=== PATIENT | male | born 1950 | race Caucasian/White ===

== ENCOUNTER 2020-04-01 09:43 | Outpatient (CLI) | payer MEDICARE, SELFPAY ==
[2020-04-01 10:49] LABS: Alanine Aminotransferase 19 U/L (16-63); Albumin Level 3.4 g/dL (3.4-5.0); Alkaline Phosphatase 77 U/L (46-116); Anion Gap 8.3 mmol/L (7-16); Aspartate Amino Transferase 12 U/L (15-37); Bilirubin,Total 0.4 mg/dL (0.00-1.00); Blood Urea Nitrogen 10 mg/dL (7-18); Calcium 8.4 mg/dL (8.5-10.1); Carbon Dioxide 31 mmol/L (21-32); Chloride 106 mmol/L (98-108); Cholesterol 162 mg/dL (0-200); Estimated Glomerular Filt Rate > 60; Glucose 117 mg/dL (70-99); HDL Direct 43 mg/dL (40-60); LDL Cholesterol Calculated 89 mg/dL (<130); Osmolality Calculated 292 mOsm/kg (285-295); Potassium 4.3 mmol/L (3.5-5.1); Prostate Specific Antigen 1.7 ng/mL (< OR = 4.0); Sodium 141 mmol/L (136-145); Thyroid Stimulating Hormone 2.52 uIU/mL (0.36-3.74); Total Protein 6.4 g/dL (6.4-8.2); Triglycerides 149 mg/dL (0-150)
== END 2020-04-01 09:44 | disposition home or self-care (01) ==
LOC: CHSLAB 09:45
PROVIDERS: PCP Internal Medicine; Visit Provider Internal Medicine
DX: E03.9 Hypothyroidism, unspecified (principal); E78.00 Pure hypercholesterolemia, unspecified; Z12.5 Encounter for screening for malignant neoplasm of prostate
CPT/HCPCS: 36415; 80053; 80061; 84153; 84443; G0103

== ENCOUNTER 2020-11-24 15:53 | Outpatient (CLI) | payer MEDICARE, SELFPAY ==
--- NOTE | ~2020-11-24 | XR_ITS ---
EXAMINATION: XR chest 2V DATE: 11/24/2020 16:19 INDICATION: Preoperative evaluation with risk factor of prior smoking and mild emphysema. TECHNIQUE: PA and lateral views of the chest were obtained. COMPARISON: Chest radiograph dated and CT dated 08/12/2015 FINDINGS: Unchanged small peripheral wedge-shaped region of atelectasis/scarring at the at the lateral left low er lung zone. Also unchanged is minimal thin linear discoid atelectasis at the right middle lobe. No new airspace opacities, pulmonary edema, pleural effusion or pneumothorax. The cardiomediastinal silh ouette is normal. Old healed right fifth rib fracture.. There are bridging osteophytes at multiple le vels in the spine, consistent with diffuse idiopathic skeletal hyperostosis (DISH). IMPRESSION: 1. Chronic small region of atelectasis/scarring at the lateral left lower lung zone and minimal linea r discoid atelectasis at the right middle lobe. No acute cardiopulmonary disease. Reviewed, dictated and finalized at location B. CASTER IMPRESSION: 1. Chronic small region of atelectasis/scarring at the lateral left lower lung zone and minimal linear discoid atelectasis at the right middle lobe. No acute cardiopulmonary disease.
== END 2020-11-24 15:54 | disposition home or self-care (01) ==
LOC: CHSIMG 15:57
PROVIDERS: Visit Provider Orthopaedic Surgery
DX: M25.562 Pain in left knee (principal); Z01.812 Encounter for preprocedural laboratory examination
CPT/HCPCS: 71046

== ENCOUNTER 2020-12-01 10:40 | Outpatient (RCR) | payer MEDICARE, SELFPAY ==
--- NOTE | 2020-12-01 11:36 | PTOPEVAL ---
Thank you for referring Ru Villa to [facility].? The patient is scheduled to be seen for therapy? __2__x/week for 6 visits. Please review, sign, date and return this plan of care LORI. I agree with and certify that the following plan of care is medically necessary. Referring Physician Date Admitting Provider: Attending Provider: Harry Wilkinson, Referring Provider: *PT Outpatient Evaluation Start: 12/01/20 10:51 Freq: Status: Active Protocol: Document 12/01/20 10:45 KRISHNA (Rec: 12/01/20 11:33 KRISHNA [email or web address]) Therapy Assessment Status Assessment Status Assessment Status Evaluation Outpatient Past Medical History Cardiovascular History Hx Hypercholesterolemia Yes Musculoskeletal History Hx Orthopedic Surgery Yes Endocrine History Hx Hypothyroidism Yes Evaluation Information Problem Diagnosis left knee arthroscopy medial menisectomy Onset 11/29/20 Subjective Information Pt. reports that he underwent Query Text:As Reported By Patient/ surgery on the left knee on / Family 06/13. He stsates that he used crutches for about 2 days. He reports that he notes that the knee is stiff. He states that pain is minimal. Pt. reports that he is currently not driving. He reports that his goal for therapy is for his knee to feel good and move better. Prior Level of Function Activity Level (Last 3 Months) Occupation retired Activity of Daily Living Ability Independent Indoor/Home Mobility Independent Community Mobility Independent Stairs Ability Independent Functional Cognition (Planning, Shopping Independent , Taking Medications) Cooking Yes Cleaning Yes Laundry Yes Shopping Yes Driving Yes Pain Assessment Timing of Pain Assessment Timing of Pain Assessment Pre-Treatment Pain Scale Pain Scale Used Numeric (1 - 10) Self Report Pain Assessment Left Knee(s) Reported Pain Level 6 Pain Description Aching,Tightness Pain Frequency Continuous Pain Aggravating Factors Exercise/Activity Pain Score Pain Score 6: Self Report Interventions Used Interventions Used By Clinicians Ice Lower Extremity Range of Motion General Lower Extremity Range of Motion Gross Lower Extremity Range of Motion l
--- NOTE | 2020-12-13 09:24 | PCPTNOTE ---
12/13/20 - patient has called today and reports he would like to DC therapy this date as he reports has been approved to continue HEP exercises at home by his MD. YURI
== END 2020-12-08 13:25 | disposition home or self-care (01) ==
LOC: CHSPT 10:40
PROVIDERS: Visit Provider Orthopaedic Surgery
DX: Z98.890 Other specified postprocedural states (principal)
CPT/HCPCS: 97016; 97110; 97161

== ENCOUNTER 2021-07-19 12:07 | Outpatient (CLI) | payer MEDICARE, SELFPAY ==
--- NOTE | 2021-07-19 12:40 | ECG_ITS ---
Measurements Intervals [place] Rate: 64 P: 52 HI: 192 QRS: 73 QRSD: 88 T: 22 QT: 394 QTc: 408 Interpretive Statements SINUS RHYTHM MINIMAL Q WAVES- INFERIOR LEADS BASELINE ARTIFACT- V4 BORDERLINE ECG Electronically Signed On 07-19-2021 14:16:32 CDT by Aramis Anne D.O.
== END 2021-07-19 12:08 | disposition home or self-care (01) ==
PROVIDERS: PCP Internal Medicine
DX: Z01.818 Encounter for other preprocedural examination (principal)
CPT/HCPCS: 93005

== ENCOUNTER 2021-09-27 09:32 | Outpatient (CLI) | payer MEDICARE, SELFPAY ==
--- NOTE | ~2021-09-27 | US_ITS ---
EXAMINATION: US scrotum doppler DATE: 09/27/2021 10:10 INDICATION: Disorder of the male genital organs. Left testicular pain. TECHNIQUE: Testicular sonogram utilizing grayscale and Doppler COMPARISON: None. FINDINGS: The right testis measures 4.0 x 2.6 x 3.2 cm. The left testis measures 3.8 x 2.7 x 3.3 cm. Symmetric normal grayscale appearance to both testes. There is normal vascular flow to both testes. The right e pididymis is normal with normal vascular flow. The left epididymis is normal with normal vascular shahrzad w. There is no varicocele. Minimal bilateral hydroceles which is within normal limits. IMPRESSION: 1. Normal scrotal ultrasound. Reviewed, dictated and finalized at location B. ETING ASSISTANT
[2021-09-27 10:02] LABS: Add Urine Microscopic? NO; Appearance Urine Clear (Clear); Bilirubin Urine Negative (Negative); Blood Urine Negative (Negative); Color Urine Yellow (Yellow); Glucose Urine UA Negative (Negative); Ketones Urine Negative (Negative); Leukocyte Esterase Ur Negative (Negative); Nitrate Urine Negative (Negative); Protein Urine Negative (Negative); Specific Grav Ur >= 1.030 (1.010-1.020)
[2021-09-27 10:32] LABS: Alanine Aminotransferase 18 U/L (16-63); Albumin Level 3.6 g/dL (3.4-5.0); Alkaline Phosphatase 85 U/L (46-116); Anion Gap 8 mmol/L (8-16); Aspartate Amino Transferase 10 U/L (15-37); Bilirubin,Total 0.4 mg/dL (0.00-1.00); Blood Urea Nitrogen 10 mg/dL (7-18); Calcium 8.5 mg/dL (8.5-10.1); Carbon Dioxide 29 mmol/L (21-32); Chloride 107 mmol/L (98-108); Cholesterol 158 mg/dL (0-200); Estimated Glomerular Filt Rate 53; Free T4 Free Thyroxine 1.32 ng/dL (0.76-1.46); Glucose 113 mg/dL (70-99); HDL Direct 42 mg/dL (40-60); LDL Cholesterol Calculated 87 mg/dL (<130); Osmolality Calculated 298 mOsm/kg (285-295); Potassium 4.6 mmol/L (3.5-5.1); Prostate Specific Antigen 2.4 ng/mL (< OR = 4.0); Sodium 144 mmol/L (136-145); Total Protein 6.8 g/dL (6.4-8.2); Triglycerides 143 mg/dL (0-150)
== END 2021-09-27 09:33 | disposition home or self-care (01) ==
LOC: CHSLAB 09:34
PROVIDERS: PCP Internal Medicine; Visit Provider Internal Medicine
DX: E03.9 Hypothyroidism, unspecified (principal); N50.89 Other specified disorders of the male genital organs; Z12.5 Encounter for screening for malignant neoplasm of prostate; Z00.00 Encounter for general adult medical examination without abnormal findings
CPT/HCPCS: 36415; 76870; 80053; 80061; 81003; 84153; 84439; 84443; 84481; 93976; G0103

== ENCOUNTER 2021-09-27 09:37 | Outpatient (CLI) | payer MEDICARE, SELFPAY | END 2021-09-27 09:38 | disposition home or self-care (01) | LOC: CHSIMG 09:40 | PROVIDERS: PCP Internal Medicine; Visit Provider Internal Medicine | DX: N50.89 Other specified disorders of the male genital organs (principal) | CPT/HCPCS: 99199 ==

== ENCOUNTER 2022-09-12 10:16 | Emergency (ER) | payer MEDICARE, SELFPAY ==
--- NOTE | ~2022-09-12 | CT_ITS ---
EXAMINATION: CT abdomen pelvis wo con DATE: 09/12/2022 10:59 INDICATION: Right periumbilical tenderness. 2 days of diarrhea. TECHNIQUE: Computed tomography (CT) of the abdomen and pelvis was performed without intravenous contr ast. Automated exposure control and iterative reconstruction technique were employed. The dose-length product was 1108.41 mGy-cm. COMPARISON: 09/13/2019 FINDINGS: Unchanged cluster of small calcified and noncalcified nodules measuring up to 4 mm in the posterior b asilar left lower lobe, likely sequela of old infection. Unchanged small region of round atelectasis/ scarring at the lateral aspect of the left major fissure, unclear whether in the lingula or left lowe r lobe. Heart size is normal. Atherosclerotic coronary artery calcification. Very small pericardial e ffusion. Cholecystectomy clips the gallbladder fossa. Liver, pancreas and bilateral adrenal glands ar e normal. Multiple splenic calcifications consistent with old granulomatous disease. Bilateral nonobs tructing nephrolithiasis with 1 mm stone at an upper pole calyx of the right kidney and 3 mm stone at a middle calyx of the left kidney. Normal bilateral ureters and bladder with no additional urolithia sis. No hydronephrosis. Prostatomegaly. Small bilateral fat-containing inguinal hernias. Normal appen merna. No bowel obstruction. There is mild colonic diverticulosis with a sigmoid predominance. There i s no adjacent inflammatory change to suggest diverticulitis. There is however mild inflammatory stran ding associated with a small ovoid region of fat attenuation along the anterior margin of the sigmoid colon consistent with epiploic appendagitis. Fluid throughout the colon consistent with provided his tory of diarrhea. No free intraperitoneal gas or fluid. No pathologically enlarged abdominal or pelvi c lymphadenopathy. Moderate to severe spondylosis at L5-S1. Mild spondylosis in the more cephalad lum bar and lower thoracic spine. IMPRESSION: 1. Sigmoid colon epiploic appendagitis. 2. Bilateral nonobstructing nephrolithiasis. 3. Diverticulosis with nonspecific fluid throughout the colon consistent with provided history of jc rrhea. Reviewed, dictated and finalized at location A. OGRAPHIC PROCESSOR IMPRESSION: 1. Sigmoid colon epiploic appendagitis. 2. Bilateral nonobstructing nephrolithiasis. 3. Diverticulosis with nonspecific fluid throughout the colon consistent with p rovided history of diarrhea.
[2022-09-12 10:16] VITALS: BP 154/87; PULSE 75; RESP 18; TEMP 36.3; O2SAT 97
--- NOTE | 2022-09-12 10:28 | ED.GENADULT ---
HPI - General Adult General Chief complaint: Abdominal Pain Stated complaint: right lower abdominal pain Time Seen by Provider: 09/12/22 10:27 History of Present Illness HPI narrative: The patient is a 72-year-old male with history of diverticulitis in 1989, treated with antibiotics. Also with hypothyroidism and hyperlipidemia. Status post cholecystectomy. No other abdominal operations He now presents with a 2 day history of right periumbilical and right lower quadrant abdominal discomfort, constant in nature for the last 2 days, increasing in intensity, not radiating elsewhere. Not associated with any other symptoms such as nausea or vomiting or fevers or chills or diaphoresis. Did have 2 bowel movements today that were loose; 2 yesterday as well. No hematuria or UTI symptoms. No URI symptoms. Related Data Home Medications Medication Instructions Recorded Confirmed levothyroxine 150 mcg tablet 150 mcg PO DAILY 09/13/19 09/12/22 simvastatin 40 mg tablet 40 mg PO DAILY 09/13/19 09/12/22 tadalafil 5 mg tablet 5 mg PO DAILY 09/12/22 09/12/22 Allergies Allergy/AdvReac Type Severity Reaction Status Date / Time No Known Allergies Allergy Verified 09/12/22 10:28 Review of Systems Review of Systems: All systems reviewed & are unremarkable except as noted in HPI and below Constitutional: Constitutional: Reports no additional constitutional complaints, Denies anorexia, Denies body ache(s), Denies chills, Denies excessive sweating, Denies fatigue, Denies fever(s), Denies frequent falls, Denies headache(s), Denies malaise and Denies poor appetite Eyes: Eyes: Reports no additional eye complaints, Denies blurry vision, Denies change in vision, Denies irritation, Denies itchy eyes and Denies photophobia ENT: Reports system reviewed and no additional complaints, except as documented, Reports Normal hearing present, Denies change in voice, Denies dysphagia, Denies vertigo, Denies dizziness, Denies ear discharge, Denies headache(s), Denies hearing loss, Denies hoarseness, Denies nasal congestion, Denies neck pain, Denies sinus pressure, Denies sore throat and Denies throat swelling Cardiovascular: Cardiovascular: Reports no additional cardiovascular complaints, Denies chest pain, Denies syncope, Denies rapid heart rate, Denies irregular heart rhythm, Denies leg edema, Denies dyspnea and Denies slow heart rate Respiratory: Respiratory: Reports no additional respiratory complaints, Denies cough, Denies dyspnea, Denies stridor and Denies wheezing Gastrointestinal: Gastrointestinal: Reports no additional gastrointestinal complaints, Reports abdominal pain, Denies melena, Denies hematochezia, Denies dysphagia, Denies diarrhea, Denies nausea and Denies vomiting Genitourinary: Genitourinary: Denies hematuria, Denies oliguria, Denies dysuria, Denies flank pain, Denies urinary frequency and Denies urinary urgency Musculoskeletal: Musculoskeletal: Reports no additional musculoskeletal complaints, Denies abnormal gait, Denies back pain, Denies myalgias, Denies arthralgias, Denies joint swelling, Denies limited range of motion, Denies muscle cramps, Denies muscle weakness, Denies neck pain and Denies numbness Integumentary/Breasts: Skin/Breast: Reports system reviewed and no additional complaints, except as docu, Denies breast pain, Denies change in pigmentation, Denies pruritus, Denies erythema and Denies wounds Neurologic: Reports system reviewed and no additional complaints, except as documented, Reports Normal hearing present, Denies Abnormal speech present, Denies abnormal gait, Denies confusion, Denies vertigo, Denies dizziness, Denies syncope, Denies frequent falls, Denies headache(s), Denies focal weakness, Denies numbness and Denies paresthesias Psychiatric: Psychiatric: Reports no additional psychiatric complaints and Denies confusion Endocrine: Endocrine: Reports no additional endocrine complaints, Denies cold intolerance, Denies excessive sweating
[2022-09-12 10:57] LABS: Basophils Absolute Auto 0.07 K/mm3 (0.00-0.10); Basophils Percent Auto 0.8 % (0.0-1.0); Eosinophils Absolute Auto 0.19 K/mm3 (0.02-0.50); Eosinophils Percent Auto 2.3 % (1.0-6.0); Hemoglobin 13.9 g/dL (12.4-15.3); Immature Granulocyte Absolute 0.05 K/mm3 (0.00-0.00); Immature Granulocyte Percent A 0.6 % (0.0-0.0); Immature Platelet Fraction Pct 16.2 % (1.0-7.0); Lymphocytes Absolute Auto 1.85 K/mm3 (1.10-4.50); Lymphocytes Percent Auto 22.3 % (18.0-42.0); Mean Corpuscular HGB Conc 33.1 g/dL (32.0-36.0); Mean Corpuscular Hemoglobin 28.6 pg (27.0-31.0); Mean Corpuscular Volume 86.4 fL (78.0-102.0); Monocytes Absolute Auto 0.66 K/mm3 (0.10-0.90); Neutrophils Absolute Auto 5.5 K/mm3 (1.7-7.2); Platelet Count Result 113 K/mm3 (150-420); Red Blood Count 4.86 M/mm3 (4.70-6.10); Red Cell Distribution Width 12.1 % (11.6-14.4); White Blood Count 8.3 K/mm3 (4.8-10.8)
[2022-09-12 11:09] LABS: Alanine Aminotransferase 14 U/L (16-63); Albumin Level 3.4 g/dL (3.4-5.0); Alkaline Phosphatase 85 U/L (46-116); Amylase 38 U/L (25-115); Anion Gap 4 mmol/L (8-16); Aspartate Amino Transferase < 10 U/L (15-37); Bilirubin,Total 0.5 mg/dL (0.00-1.00); Blood Urea Nitrogen 10 mg/dL (7-18); Calcium 8.3 mg/dL (8.5-10.1); Carbon Dioxide 30 mmol/L (21-32); Chloride 105 mmol/L (98-108); Estimated CRCL calculation 64 ml/min; Estimated Glomerular Filt Rate > 60; Glucose 111 mg/dL (70-99); Lipase 23 U/L (16-77); Osmolality Calculated 288 mOsm/kg (285-295); Potassium 4.3 mmol/L (3.5-5.1); Sodium 139 mmol/L (136-145); Total Protein 6.8 g/dL (6.4-8.2)
[2022-09-12 11:16] VITALS: BP 159/84; PULSE 72; RESP 16; O2SAT 98
--- NOTE | 2022-09-12 11:16 | PC.NURSE ---
PT HAS RETURNED FROM CT, AWAITING RESULTS AT THIS TIME. WILL CONTINUE TO MONITOR. AT BEDSIDE. PT IS LYING ON STRETCHER WATCHING TV. NAD NOTED.
[2022-09-12 11:29] LABS: Add Urine Microscopic? NO; Appearance Urine Clear (Clear); Bilirubin Urine Negative (Negative); Blood Urine Negative (Negative); Color Urine Light Yellow (Yellow); Glucose Urine UA Negative (Negative); Ketones Urine Negative (Negative); Leukocyte Esterase Ur Negative LEU/UL (Negative); Nitrate Urine Negative (Negative); Protein Urine Negative (Negative); Urobilinogen Urine 0.2 mg/dL (0.2-1.0)
[2022-09-12 12:40] VITALS: BP 148/80; PULSE 70; RESP 16; O2SAT 98
== END 2022-09-12 12:40 | disposition home or self-care (01) ==
PROVIDERS: Emergency Provider Emergency Medicine; PCP Internal Medicine
DX: K63.89 Other specified diseases of intestine (principal); E03.9 Hypothyroidism, unspecified; E78.5 Hyperlipidemia, unspecified; Z90.49 Acquired absence of other specified parts of digestive tract; Z87.891 Personal history of nicotine dependence
CPT/HCPCS: 36415; 74176; 80053; 81003; 82150; 83690; 85025; 85055; 99284

== ENCOUNTER 2024-01-13 09:48 | Outpatient (RCR) | payer MEDICARE, SELFPAY ==
--- NOTE | 2024-01-13 10:45 | PTOPEVAL1 ---
Assessment and note entered by Maxime Swanson Evaluation Information Assessment Status Evaluation Diagnosis R hip pain, low back pain Onset 01/03/24 Subjective Information Pt. reports he developed pain in the area of the right hip around 01/03/24. He reports that he noticed pain after getting out of bed. He reports that he underwent x-ray and the doctor told him he had bursitis. He reports that he also had x- ray of his back and it is currently bone on bone. He reports that he has improved since the initial incident. He reports that pain is more located to the right side of the low back currently. He reports that standing for any duration will increase his pain. He enjoys working on cars, and states that he has been unable to do so since developing pain. He reports that his goal for therapy is to decrease his low back pain with standing activities. Reported Pain Level Pain Score 4: Self Report Assessment PT Clinical Summary Pt. is a 73 year old male who enters the clinic with a medical diagnosis of right hip and low back pain. He presents with l.e. weakness, impaired gait mechanics, impaired postural awareness, pain and functional decline. Continued skilled PT is indicated in order to improve these areas to allow the pt. to be able to complete all IADL's with improve comfort and efficiency. Plan of Care Interventions Electrical Stimulation,Gait Training,Hot Pack/Cold Pack,Manual Therapy,Neuro Re-education,Patient/ Caregiver Educati,Therapeutic Activities, Therapeutic Exercise PT Services Indicated Yes Treatment Frequency and 2x/week x 10 visits Duration These treatments will address the objective and functional deficits as defined above. The patient will be advanced safely and appropriately in order for the patient to progress towards his/her prior level of function. Additional exercises will be introduced and as well as a comprehensive home exercise program upon discharge, if needed, ?to ensure carryover of functional gains achieved in the clinic. This treatment plan has been reviewed and agreement upon by the patient.
--- NOTE | 2024-01-13 10:46 | OPREHPOC ---
Outpatient Therapy Plan of Care This is a Multidisciplinary Plan of Care that may contain components documented by all disciplines (PT, OT, and ST.) PT Problem 1 PT Problem #1 Knowledge Deficit PT Goal 1 Goal Independent with a HEP focusing on trunk mobility and strength Target Visit 2 PT Problem 2 PT Problem #2 Pain PT Goal 1 Goal Reduce pain to 4/10 at worst with prolonged standing activities. Target Visit 10 PT Problem 3 PT Problem #3 Impaired Gait PT Goal 1 Goal Pt. will ambulate with equal right and left stance time without noted trendelenburg. Target Visit 10 PT Problem 4 PT Problem #4 Impaired Strength PT Goal 1 Goal Pt. will demonstrate 5/5 right hip flexion and 4+/ 5 right hip abduction strength Target Visit 10 PT Problem 5 PT Problem #5 Impaired Functional Mobil PT Goal 1 Goal Pt. will demonstrate less than 30% limitation on the LEFS. Target Visit 10
--- NOTE | 2024-06-25 10:08 | PCPTNOTE ---
Pt was last seen on 01/30/24 and only attended 5 skilled PT visits. He has not followed up and is discharged. -Kelly Adams, PT
== END 2024-01-30 10:45 | disposition home or self-care (01) ==
LOC: CHSPT 09:48
DX: M51.36 Other intervertebral disc degeneration, lumbar region (principal); M70.61 Trochanteric bursitis, right hip
CPT/HCPCS: 97014; 97110; 97161; G0283

== ENCOUNTER 2025-07-19 18:02 | Emergency (ER) | payer MEDICARE, SELFPAY ==
[2025-07-19] VITALS (7 sets, daily range): BP systolic 120–152; BP diastolic 66–75; PULSE 60–66; RESP 14–22; TEMP 36.2–37.1; O2SAT 96–99
--- NOTE | 2025-07-19 18:05 | ED.ALLEREA ---
HPI - Allergic Reaction General Chief complaint: Allergic Reaction Stated complaint: heart racing Time Seen by Provider: 07/19/25 18:04 Source: patient and family Mode of arrival: ambulatory Limitations: no limitations History of Present Illness HPI narrative: Patient is a 75-year-old male with a sinus infection and was given ampicillin that did not help and further change to Levaquin. The Levaquin cause palpitations a few hours after taking the medicine. He came to the ER for evaluation after the symptoms had resolved at this time. His was concerned about the symptoms. No chest pain per se or shortness of breath. He also need an antibiotic for replacement. MD complaint: allergic reaction Onset (ago): hour(s) (Three) Exposure: medication (Levaquin) Symptoms: other (Heart palpitations) Severity: mild Treatment prior to arrival: none Previous Allergic Reaction History: none Related Data Home Medications ?Medication ?Instructions ?Recorded ?Confirmed ?Last Taken ?Type levothyroxine 150 mcg tablet 150 mcg PO DAILY 09/13/19 09/12/22 Unknown History simvastatin 40 mg tablet 40 mg PO DAILY 09/13/19 09/12/22 Unknown History tadalafil 5 mg tablet 5 mg PO DAILY 09/12/22 09/12/22 Unknown History amoxicillin 875 mg-potassium tablet 07/19/25 Unknown History clavulanate 125 mg tablet Allergies Allergy/AdvReac Type Severity Reaction Status Date / Time levofloxacin Allergy Intermediate Palpitation Verified 07/19/25 18:22 s Review of Systems Review of Systems: All systems reviewed & are unremarkable except as noted in HPI and below Constitutional: Constitutional: Reports no additional constitutional complaints Eyes: Eyes: Reports no additional eye complaints ENT: Reports system reviewed and no additional complaints, except as documented Cardiovascular: Cardiovascular: Reports no additional cardiovascular complaints Respiratory: Respiratory: Reports no additional respiratory complaints Gastrointestinal: Gastrointestinal: Reports no additional gastrointestinal complaints Genitourinary: Genitourinary: Reports no additional male genitourinary complaints Musculoskeletal: Musculoskeletal: Reports no additional musculoskeletal complaints Integumentary/Breasts: Skin/Breast: Reports system reviewed and no additional complaints, except as docu Neurologic: Reports system reviewed and no additional complaints, except as documented Psychiatric: Psychiatric: Reports no additional psychiatric complaints Endocrine: Endocrine: Reports no additional endocrine complaints Hematologic/Lymphatic: Hematologic/Lymphatic: Reports no additional hematologic/lymphatic complaints Allergic/Immunologic: Allergic/Immunologic: Reports no additional allergic/immunologic complaints PMFSH Past Medical History Medical History History of hyperlipidemia History of hypothyroidism Surgical History Surgical History History of cholecystectomy History of tonsillectomy Social History Social History Smoking status: Former smoker Exam Const: General: healthy appearing Nutritional Appearance: well nourished Orientation/consciousness: patient oriented x3 HENMT: Head: normal to inspection Ears: external ears normal Face/Nose/Sinus: Normal external nose present Eyes: Conjunctivae: conjunctivae normal Pupils: Equal, round and reactive pupils present EOM: EOMs intact bilaterally Neck: Neck: normal visual inspection Chest: Chest palpation & inspection: normal inspection of the chest Resp: Effort & Inspection: normal respiratory effort and not labored Auscultation: clear to auscultation bilaterally and no crackles Cardio: Rate: regular rate Rhythm: regular rhythm Heart sounds: no murmurs GI: Inspection: non-distended GI Palp: Yes Soft to palpation and No Tenderness to palpation present (GI) Auscultation: normal bowel sounds : General: Yes bladder normal to palpation Back/Spine/Pelvis: Back: no CVA tenderness Skin: General skin exam: normal color Rashes: no rashes Wounds: no wounds Neuro: General: patient oriented x3, moves all extremities and no meningeal signs Extrem: General: normal to inspection, no clubbing, cyanosis or edema and no pedal edema Psych: Mental Status: mental status grossly normal Affect: normal affect Attitude: cooperative Course Vital Signs Vital signs: Vital Signs Temperature 37.1 C 07/19/25 18:05 Pulse Rate 66 07/19/25 18:05 Respiratory Rate 18 07/19/25 18:05 Blood Pressure 152/75 H 07/19/25 18:05 Pulse Oximetry 96 07/19/25 18:05 Oxygen Delivery Room Air 07/19/25 18:05 Temperature 37.1 C 07/19/25 18:05 Pulse Rate 66 07/19/25 18:05 Respiratory Rate 18 07/19/25 18:05 Blood Pressure 152/75 H 07/19/25 18:05 Pulse Oximetry 96 07/19/25 18:05 Oxygen Delivery Room Air 07/19/25 18:05 MDM - Allergic Reaction MDM Narrative Medical decision making narrative: Patient is a 75-year-old male with heart palpitations after taking Levaquin this afternoon. Palpitations have resolved. We will do a cardiac workup for reassurance. Stop Levaquin. Augmentin. Lab Data Attestation: I reviewed the patient's lab results. 07/19/25 19:09 07/19/25 19:09 Labs: Lab Results 07/19/25 Range/Units 19:09 WBC 7.9 (4.8-10.8) K/mm3 RBC 4.97 (4.70-6.10) M/mm3 Hgb 14.3 (12.4-15.3) g/dL Hct 43.4 (37.0-46.0) % MCV 87.3 (78.0-102.0) fL MCH 28.8 (27.0-31.0) pg MCHC 32.9 (32-36) g/dL RDW 12.3 (11.6-14.4) % Plt Count 163 (150-420) K/mm3 MPV 12.8 H (8.7-11.0) fl Immature Gran % (Auto) 0.5 H (0.0-0.0) % Neut % (Auto) 50.3 (50.0-70.0) % Lymph % (Auto) 34.4 (18.0-42.0) % [place] % (Auto) 8.1 (2.0-11.0) % Eos % (Auto) 5.7 (1.0-6.0) % Baso % (Auto) 1.0 (0.0-1.0) % Lymph # (Auto) 2.73 (1.10-4.50) K/mm3 [place] # (Auto) 0.64 (0.10-0.90) K/mm3 Eos # (Auto) 0.45 (0.02-0.50) K/mm3 Baso # (Auto) 0.08 (0.00-0.10) K/mm3 Abs Immat Gran (auto) 0.04 H (0.00-0.00) K/mm3 Absolute Neuts (auto) 3.99 (1.70-7.20) K/mm3 Absolute Nucleated RBC 0.00 (0.00-0.00) K/mm3 Nucleated RBC % 0.0 (0-0.0) % Sodium 141 (137-145) mmol/L Potassium 4.4 (3.4-5.0) mmol/L Chloride 104 (98-107) mmol/L Carbon Dioxide 30 (22-30) mmol/L Anion Gap 7 (4-12) mmol/L BUN 15 (9-20) mg/dL Creatinine 1.08 (0.7-1.3) mg/dL Estim Creat Clear Calc 63 ml/min Estimated GFR > 60 (59 - ) Glucose 101 (65-110) mg/dL Calculated Osmolality 292 (285-295) mOsm/kg Calcium 9.1 (8.4-10.2) mg/dL Total Bilirubin 0.5 (0.2-1.3) mg/dL AST 19 (17-59) U/L ALT 15 (6-50) U/L Alkaline Phosphatase 84 (38-126) U/L Troponin I Pending Total Protein 7.6 (6.3-8.2) g/dL Albumin 4.2 (3.5-5.1) g/dL Discharge Plan Discharge Clinical Impression: Medication side effect Sinusitis Qualifiers: Sinusitis location: unspecified location Chronicity: acute Recurrence: non-recurrent Qualified Code(s): J01.90 - Acute sinusitis, unspecified Patient Disposition: Home Condition: Stable Instructions: Antibiotic Form, Sinusitis (ED), General Allergic Reaction (ED) Additional Instructions: Please stop the Levaquin. We are going to start Augmentin to treat the sinusitis. Follow-up with primary doctor in the next week. Patient Language: Turkish Prescriptions: New amoxicillin-pot clavulanate 875-125 mg tablet 1 tablet PO BID 10 Days Qty: 20 0RF No Action tadalafil 5 mg tablet 5 mg PO DAILY amoxicillin-pot clavulanate 875-125 mg tablet simvastatin 40 mg tablet 40 mg PO DAILY levothyroxine 150 mcg tablet 150 mcg PO DAILY Follow-up/Referrals: UNKNOWN,DOCTOR [Primary Care Provider] Time of Disposition: 19:36
--- OUTSIDE RECORDS SUMMARY | 2025-07-19 18:40 | XMS_ITS | Clinical Summary ---
Author Organization [facility] Address [address] [place] [address] Care Team Providers Care Herpetologist Name Role Phone Sai Davila MD Primary Care Provider Allergies No known active allergies Medications levothyroxine (SYNTHROID, LEVOTHROID) 150 mcg tabletIndication s:hypothyroidism Take 1 tablet (150 mcg total) by mouth sound tester before breakfast 8 Active simvastatin (ZOCOR) 40 mg tabletIndication s:hyperlipidemia Take 1 tablet (40 mg total) by mouth sound tester before breakfast 8 Active vit A/vit C/vit E/zinc/copper (ICAPS AREDS ORAL)Indications :supplement Take 1 capsule by mouth sound tester before breakfast Active tadalafiL (CIALIS) 5 mg tablet Take 1 tablet (5 mg total) by mouth daily as needed Active tamsulosin (FLOMAX) 0.4 mg extended release capsuleIndicatio ns:benign prostatic hyperplasia with lower urinary tract sx Take 0.4 mg by mouth nightly Active Active Problems Problem Noted Date Diagnosed Date Senile ectropion of both lower eyelids Assessment & Plan (02/08/2023 4:47 PM CDT): Ru Villa is doing well after Repair Bilateral Ectropion - Bilateral on 12/05/2022. He demonstrates excellent healing and has been released from my care and has been instructed to continue comprehensive eye care as scheduled. Assessment & Plan (11/13/2022 11:09 PM SHOP MANAGER): Risks, benefits and alternatives were discussed. Risks included but were not limited to pain, infection, bleeding, scarring, eyelid asymmetry, need for additional procedures, and anesthetic morbidity. Following this discussion, the patient wishes to proceed with bilateral ectropion repair to address lid laxity. We will schedule this in the near future. Epiphora due to insufficient drainage of both si alisha 11/13/2022 Assessment & Plan (09/22/2023 12:30 AM SHOP MANAGER): No evidence of epiphora on examination today with good lid position and punctal patency. He reports increased watering when reading/computer use. Possible etiology related to dry eye symptoms during concentration. I have instructed him to attempt to place artificial tears prior to these types of activities and to avoid using tissue -- he has been instructed to switch to micro-fiber cloth to gentle apply to eyes. He will return if his symptoms persist. Assessment & Plan (07/28/2023 6:54 AM SHOP MANAGER): We have discussed treatment options including trial of topical treatment, surgical intervention, and observation. We have elected to trial a course of prednisolone 1% BID and Flonase daily. Follow-up in 1 month for repeat evaluation if not improved. Painful orthopaedic hardware 08/19/2018 Overview (08/19/2018): Added automatically from request for surgery [id number] Surgical History Surgery Date Site/Laterality Comments CHOLECYSTECTOMY 09/23/2015 - 09/22/2016 HEMORRHOID SURGERY 09/23/1975 - 09/22/1976 ORIF ANKLE FRACTURE 09/23/1978 - 09/22/1979 SHOULDER SURGERY 2007, 2011, 2016 ANKLE SURGERY 09/23/2016 - 09/22/2017 REPLACEMENT TOTAL KNEE 09/23/2015 - 09/22/2016 Right COLONOSCOPY EYE SURGERY 09/23/2021 - 09/22/2022 Bilateral Medical History Medical History Date Comments Former smoker quit 1989 Hyperlipidemia Hypothyroidism Vertigo PONV (postoperative nausea and vomiting) Family History Medical History Relation Name Comments Arthritis Father Family history of arthritis - (Added by TW Conv) Cancer Father Family history of malignant neoplasm - (Added by TW Conv) Arthritis Mother Family history of arthritis - (Added by TW Conv) Cancer Mother Family history of malignant neoplasm - (Added by TW Conv) Heart disease Mother Relation Name Status Comments Father Mother Social History Tobacco Use Types Packs/Day Years Used Date Smoking Tobacco: Former Cigarettes 1 26 1 964 - 1989 Smokeless Tobacco: Never Tobacco Cessation:Counseling Given: Not Answered Alcohol Use Standard Drinks/Week Comments No 0 (1 standard drink = 0.6 oz pur e alcohol) AUDIT-C Answer Date Recorded Q1: How often do you have a drink containing alcohol? Never 12/05/2022 Q2: How many drinks containi ng alcohol do you have on a typical day when you are drinking? Patient does not drink Q3: How often do you have si x or more drinks on one occasion? Never 12/05/2022 Personal Safety Answer Date Recorded Getting School Help Needed Denies 09/09 Sex and Gender Information Value Date Recorded Sex Assigned at Not on file Legal Sex Male 11:33 PM SHOP MANAGER Gender Identity Not on file Sexual Orientation Not on file Obstetrics History Last Filed Vital Signs Vital Sign Reading Time Taken Comments Blood Pressure 123/77 12/05/2022 1:00 PM CDT Pulse 70 12/05/2022 3:40 PM CDT Temperature 36.2 C (97.2 F) 12/05/2022 12:15 PM CDT Respiratory Rate 18 12/05/2022 3:40 PM CDT Oxygen Saturation 95% 12/05/2022 3:40 PM CDT Inhaled Oxygen Concentration - - Weight 108.9 kg (240 lb) 11/28/2022 4:55 PM SHOP MANAGER Height 180.3 cm (5' 11) 11/28/2022 4:55 PM SHOP MANAGER Body Mass Index 33.47 11/28/2022 4:55 PM SHOP MANAGER Plan of Treatment Health Maintenance Due Date Last Done Comments Depression Screening 1948 Fall Risk Assessment 1950 Hepatitis C Screening 1950 DTaP/Tdap/Td Vaccine (1 - Tdap) 1959 Hepatitis B Screening 1966 Zoster Vaccine (1 of 2) 1998 Well Visit 65+ 2013 Covid-19 Vaccine (4 - 2024-2 6 season) 2025 08/30/2021, 12/23/2020, 11/25/2020 Influenza Vaccine (#1) 2025 2, 07/12/2021, 06/17/2020, Additional history exists Abdominal Aortic Aneurysm (A AA) Screen Completed 04/20/2014 Pneumococcal vaccine 65+ Completed 10/07/2018, 09/23 Medical Devices Explanted Type Area Rejoiner Device Identifier Shelf Expiration Date Model / Serial / Lot Screw Explanted:Qty : 2 on 08/26/2018 at [facility] Left: [employer] Insurance MEDICARE [facility] INSURANCE MEDICARE AET SENIOR SUPPLEMENT MEDICARE AET SENIOR SUPPLEMENT [address] INSURANCE Care Teams Herpetologist Relationship Specialty Start Date End Date Sai Davila MD PCP - General 10/18/17
--- OUTSIDE RECORDS SUMMARY | 2025-07-19 18:40 | XMS_ITS | Data Portability ---
Author Organization [facility] [employer], Main Office Address [address] [place] [address] Care Team Providers Care House Painter Name Role Phone YOAN DAVILA Primary Care Provider [phone] YOAN DAVILA Referring Provider Assessment No assessment recorded. Plan of Treatment Reminders Order Date Submit Date Provider Last Modified By Organization Details Last Modified Time Details Appointments Any 15 2025 10:30A M Yoan Davila MD Not available Not available Not available Lab urinalysi s, complete 2024 025 [email or web address] [facility] (Lab), [address] [place], [address], 11/05/2024 09:54:19 lipid panel, serum 2024 025 [facility] (Lab), [address] [place], [address], 10/29/2024 19:06:52 CBC w/ auto diff 2024 025 [facility] (Lab), [address] [place], [address], 10/29/2024 18:52:12 CMP, serum or plasma 2024 025 [facility] (Lab), [address] [place], [address], 10/29/2024 19:06:33 glycohemo globin, total, blood 2024 025 [facility] (Lab), [address] [place], [address], 10/29/2024 19:43:32 PSA, serum or plasma [address] (Lab), [address] [place], [address], 11/05/2024 09:54:19 TSH, serum or plasma 2024 025 [facility] (Lab), [address] [place], [address], 10/29/2024 19:33:11 Referral None recorded. Procedures None recorded. Surgeries None recorded. Imaging None recorded. Medication Orders trazodone 50 mg tablet 2024 025 [email or web address] [facility]/Pharmacy #[id number], [address] [place], [address], 05/21/2025 12:32:11 amoxicill in 500 mg capsule 2024 025 [email or web address] [facility]/Pharmacy #[id number], [address] [place], [address], 12/08/2024 07:49:05 Medrol (Anders) 4 mg tablets in a dose pack 2024 025 [email or web address] [facility]/Pharmacy #[id number], [address] [place], [address], 12/08/2024 07:49:09 azelastin e 137 mcg (0.1 %) nasal spray 2023 024 [email or web address] [facility], [address] [place] [address], [address], 04/29/2025 11:18:24 Patient TargetsNo targets recorded. Patient Instructions Encounter Date Encounter Id Patient Instructions Last Modified By Organization Details Last Modified Time 11/12/2023 [id number] He declined an audio [email or web address] Not available 11/12/2023 12:41:51 04/23/2024 [id number] dementia rating scale-2* Not available 04/23/2024 13:07:50 alcohol misuse* Not available 04/23/2024 13:07:50 depression screening* Not available 04/23/2024 13:07:50 multi-dimensiona l health assessment questionnaire* [email or web address] Not available 04/24/2024 14:39:06 Personalized [facility] Plan and Screening Recommendations Advance Directives - Do you have one? Yes You have indicated that you are capable of preparing your advance care directive Advance Directives - Do we have your advance directive on file in your health record? No, please bring in a copy at your earliest convenience Primary Prevention/Interven tion (prevents or decreases the chance of common diseases from occurring) Smoking Risk: Non Smoker Alcohol Misuse Screening: Negative Weight: Overweight try to lose 10% of your body weight Physical activity: Need more exercise/physical activity minimum of 10-20 minutes of activity that causes mild breathlessness/day Nutrition: Average Refer to attached handout Heart-Healthy Diet: After Your Visit Fall Risk (screened today): Low Refer to attached handout Preventing Falls: After your Visit Vaccines Pneumococcal: No further needed Influenza: Your next one in the fall of this year Chronic Disease Risks Stroke: Low Risk I have no recommendations Heart Attack: Low risk I have no recommendations Clogging of the Arteries: Intermediate Risk Active diagnosis, Continue current treatment plan Diabetes: Low Risk I have no recommendations Secondary Prevention/Interven tion (detects treatable diseases before they may cause symptoms, disability, or ) Prostate Cancer Screening: No PSA screening necessary Colon Cancer Screening: No screening necessary Date Screening Last Performed: _ Eye Disease Screening: No Eye exam necessary Dementia Risk: Low Depression Screening: Negative [email or web address] Not available 04/23/2024 12:34:46 Reason for Referral None Reported. Results Created Date Observation Date Name Description Value Unit Range Abnormal Flag Note LastModifiedBy Organization Detail LastModifiedTime 10/29/1910/29/2024 CBC/C OMPLE TE BLD COUNT W/DIF F white blood cells 5.9 x10'3 /uL 4.2-10 .8 Not Available [facility] (Lab) [address] [place], [address], 10/29/2024 18:52:12 10/29/19 25 10/29/2024 CBC/C OMPLE TE BLD COUNT W/DIF F red blood cells 4.91 x10'6 /uL 4.10-5 .80 Not Available [facility] (Lab) [address] [place], [address], 10/29/2024 18:52:12 10/29/19 25 10/29/2024 CBC/C OMPLE TE BLD COUNT W/DIF F hemoglobin 14.4 g/dL 13.2-1 7.0 Not Available [facility] (Lab) [address] [place], [address], 10/29/2024 18:52:12 10/29/19 25 10/29/2024 CBC/C OMPLE TE BLD COUNT W/DIF F hematocrit 43.7 % 39.3-5 0.0 Not Available [facility] (Lab) [address] [place], [address], 10/29/2024 18:52:12 10/29/19 25 10/29/2024 CBC/C OMPLE TE BLD COUNT W/DIF F mean red cell volume 89.0 fL 80.0-9 7.0 Not Available [facility] (Lab) [address] [place], [address], 10/29/2024 18:52:12 10/29/19 25 10/29/2024 CBC/C OMPLE TE BLD COUNT W/DIF F mean red cell hemoglobin 29.3 pg 27.0-3 3.0 Not Available [facility] (Lab) [address] [place], [address], 10/29/2024 18:52:12 10/29/19 25 10/29/2024 CBC/C OMPLE TE BLD COUNT W/DIF F mean RBC HGB concentratio n 33.0 g/dL 31.0-3 6.0 Not Available [facility] (Lab) [address] [place], [address], 10/29/2024 18:52:12 10/29/1910/29/2024 CBC/C OMPLE TE BLD COUNT W/DIF F red cell distribution width 12.1 % 11.8-1 5.5 Not Available [facility] (Lab) [address] [place], [address], 10/29/2024 18:52:12 10/29/19 25 10/29/2024 CBC/C OMPLE TE BLD COUNT W/DIF F platelets 140 x10'3 /uL 150-40 0 low Not Available [facility] (Lab) [address] [place], [address], 10/29/2024 18:52:12 10/29/19 25 10/29/2024 CBC/C OMPLE TE BLD COUNT W/DIF F mean platelet volume 11.8 fL 9.0-12 .4 Not Available [facility] (Lab) [address] [place], [address], 10/29/2024 18:52:12 10/29/19 25 10/29/2024 CBC/C OMPLE TE BLD COUNT W/DIF F neutrophils 58.3 % 39.0-7 2.0 Not Available [facility] (Lab) [address] [place], [address], 10/29/2024 18:52:12 10/29/19 25 10/29/2024 CBC/C OMPLE TE BLD COUNT W/DIF F lymphocytes 28.6 % 16.0-4 7.0 Not Available [facility] (Lab) [address] [place], [address], 10/29/2024 18:52:12 10/29/19 25 10/29/2024 CBC/C OMPLE TE BLD COUNT W/DIF F monocytes 6.4 % 5.0-12 .0 Not Available [facility] (Lab) [address] [place], [address], 10/29/2024 18:52:12 10/29/1910/29/2024 CBC/C OMPLE TE BLD COUNT W/DIF F eosinophils 5.4 % 1.0-7. 0 Not Available [facility] (Lab) [address] [place], [address], 10/29/2024 18:52:12 10/29/19 25 10/29/2024 CBC/C OMPLE TE BLD COUNT W/DIF F basophils 1.0 % 0.0-2. 0 Not Available [facility] (Lab) [address] [place], [address], 10/29/2024 18:52:12 10/29/19 25 10/29/2024 CBC/C OMPLE TE BLD COUNT W/DIF F immature granulocytes 0.3 % 0.00-0 .50 Not Available [facility] (Lab) [address] [place], [address], 10/29/2024 18:52:12 10/29/1910/29/2024 CBC/C OMPLE TE BLD COUNT W/DIF F neutrophils, absolute count 3.46 x10'3 /uL 1.5-8. 0 Not Available [facility] (Lab) [address] [place], [address], 10/29/2024 18:52:12 10/29/19 25 10/29/2024 CBC/C OMPLE TE BLD COUNT W/DIF F lymphocytes, absolute count 1.70 x10'3 /uL 1.07-3 .43 Not Available [facility] (Lab) [address] [place], [address], 10/29/2024 18:52:12 10/29/19 25 10/29/2024 CBC/C OMPLE TE BLD COUNT W/DIF F monocytes, absolute count 0.38 x10'3 /uL 0.29-0 .99 Not Available [facility] (Lab) [address] [place], [address], 10/29/2024 18:52:12 10/29/19 25 10/29/2024 CBC/C OMPLE TE BLD COUNT W/DIF F eosinophils, absolute count 0.32 x10'3 /uL 0.02-0 .53 Not Available [facility] (Lab) [address] [place], [address], 10/29/2024 18:52:12 10/29/19 25 10/29/2024 CBC/C OMPLE TE BLD COUNT W/DIF F basophils, absolute count 0.06 x10'3 /uL 0.01-0 .08 Not Available [facility] (Lab) [address] [place], [address], 10/29/2024 18:52:12 10/29/19 25 10/29/2024 CBC/C OMPLE TE BLD COUNT W/DIF F immature granulocytes ,absolute 0.02 x10'3 /uL 0.00-0 .05 Not Available [facility] (Lab) [address] [place], [address], 10/29/2024 18:52:12 10/29/19 25 10/29/2024 CBC/C OMPLE TE BLD COUNT W/DIF F nucleated red blood cells 0.0 % -0 Not Available [facility] (Lab) [address] [place], [address], 10/29/2024 18:52:12 10/29/19 25 10/29/2024 CBC/C OMPLE TE BLD COUNT W/DIF F NRBC# 0.00 x10'3 /uL Not Available [facility] (Lab) [address] [place], [address], 10/29/2024 18:52:12 10/29/19 25 10/29/2024 COMPR EHENS DIPIKA METAB OLIC PANEL sodium 137 mmol/ L 137-14 5 Not Available [facility] (Lab) [address] [place], [address], 10/29/2024 19:06:30 10/29/19 25 10/29/2024 COMPR EHENS DIPIKA METAB OLIC PANEL potassium 4.5 mmol/ L 3.5-5. 1 Not Available [facility] (Lab) [address] [place], [address], 10/29/2024 19:06:30 10/29/19 25 10/29/2024 COMPR EHENS DIPIKA METAB OLIC PANEL chloride 107 mmol/ L 98-107 Not Available [facility] (Lab) [address] [place], [address], 10/29/2024 19:06:30 10/29/19 25 10/29/2024 COMPR EHENS DIPIKA METAB OLIC PANEL carbon dioxide 27 mmol/ L 22-30 Not Available [facility] (Lab) [address] [place], [address], 10/29/2024 19:06:30 10/29/19 25 10/29/2024 COMPR EHENS DIPIKA METAB OLIC PANEL anion gap 7.5 mmol/ L 14-22 low Not Available [facility] (Lab) [address] [place], [address], 10/29/2024 19:06:30 10/29/19 25 10/29/2024 COMPR EHENS DIPIKA METAB OLIC PANEL glucose 106 mg/dL 70-99 high Not Available [facility] (Lab) [address] [place], [address], 10/29/2024 19:06:30 10/29/19 25 10/29/2024 COMPR EHENS DIPIKA METAB OLIC PANEL BUN 14 mg/dL 8-19 Not Available [facility] (Lab) [address] [place], [address], 10/29/2024 19:06:30 10/29/19 25 10/29/2024 COMPR EHENS DIPIKA METAB OLIC PANEL creatinine 1.04 mg/dL 0.66-1 .25 Not Available [facility] (Lab) [address] [place], [address], 10/29/2024 19:06:30 10/29/19 25 10/29/2024 COMPR EHENS DIPIKA METAB OLIC PANEL GFR >60 Refer ence Range : [place] ge GFR Healt hy Adult : >60 mL/mi n/1.7 3 m2 Chron ic Kidne y Disea se: 15-60 mL/mi n/1.7 3 m2 Kidne y Failu re: <15/m L/min /1.73 m2 www.n iddk. nih.g ov The MDRD study equat ion has not been valid ated in child barrington <18 years of age; pregn ant women ; the elder ly >85 years of age; or in some racia l or ethni c subgr oups, such as Hisal nics. Outsi de the valid ated arnaud eters , estim ated GFR is less accur ate, requi ring clini yasmani judgm ent on a case- by-ca se basis . Clini yasmani inter preta tion for other races and ages must be made by the clini babak. The MDRD study equat ion has not been valid ated for the evalu ation of serum creat inine relat ed to nutri alejandrina l statu s or medic ation usage . For perso ns <18 years of age, a pedia tric GFR calcu lator is avail able on the F websi te: https ://joselito w.kid shi.o rg/pr ofess ional s/kdo qi/gf r_cal culat or Not Available [facility] (Lab) [address] [place], [address], 10/29/2024 19:06:30 10/29/19 25 10/29/2024 COMPR EHENS DIPIKA METAB OLIC PANEL alkaline phosphatase 88 U/L 38-126 Not Available [facility] (Lab) [address] [place], [address], 10/29/2024 19:06:30 10/29/19 25 10/29/2024 COMPR EHENS DIPIKA METAB OLIC PANEL alanine aminotransfe rase 15 U/L 0-50 Not Available [facility] (Lab) [address] [place], [address], 10/29/2024 19:06:30 10/29/19 25 10/29/2024 COMPR EHENS DIPIKA METAB OLIC PANEL aspartate aminotransfe rase 16 U/L 15-46 Not Available [facility] (Lab) [address] [place], [address], 10/29/2024 19:06:30 10/29/19 25 10/29/2024 COMPR EHENS DIPIKA METAB OLIC PANEL bilirubin, total 0.90 mg/dL 0.20-1 .30 Not Available [facility] (Lab) [address] [place], [address], 10/29/2024 19:06:30 10/29/19 25 10/29/2024 COMPR EHENS DIPIKA METAB OLIC PANEL calcium 9.1 mg/dL 8.4-10 .2 Not Available [facility] (Lab) [address] [place], [address], 10/29/2024 19:06:30 10/29/19 25 10/29/2024 COMPR EHENS DIPIKA METAB OLIC PANEL total protein 6.4 g/dL 6.3-8. 2 Not Available [facility] (Lab) [address] [place], [address], 10/29/2024 19:06:30 10/29/19 25 10/29/2024 COMPR EHENS DIPIKA METAB OLIC PANEL albumin 3.8 g/dL 3.0-4. 4 Not Available [facility] (Lab) [address] [place], [address], 10/29/2024 19:06:30 10/29/19 25 10/29/2024 COMPR EHENS DIPIKA METAB OLIC PANEL globulin 2.6 g/dL 2.6-4. 2 Not Available [facility] (Lab) [address] [place], [address], 10/29/2024 19:06:30 10/29/19 25 10/29/2024 COMPR EHENS DIPIKA METAB OLIC PANEL A/G ratio 1.5 ratio 1.0-2. 0 Not Available [facility] (Lab) [address] [place], [address], 10/29/2024 19:06:30 10/29/19 25 10/29/2024 LIPID PANEL cholesterol 158 mg/dL 140-19 9 NIH OMKAR NSUS RECOM MENDA TION FOR MARIOLA STERO L: ADULT CHILD LOW RISK: <200 <170 BORDE RLINE : <200- 239 ----- HIGH RISK: >240 >200 Not Available [facility] (Lab) [address] [place], [address], 10/29/2024 19:06:51 10/29/19 25 10/29/2024 LIPID PANEL triglyceride s 134 mg/dL 0-150 NIH OMKAR NSUS REPOR T RECOM MENDA TION FOR TRIGL YCERI BARRON: ADULT CHILD LOW RISK: <150 ----- BODER LINE: 150-1 99 ----- HIGH RISK: >200 ----- Not Available [facility] (Lab) [address] [place], [address], 10/29/2024 19:06:51 10/29/19 25 10/29/2024 LIPID PANEL HDL cholesterol 50 mg/dL 40- Not Available [facility] (Lab) [address] [place], [address], 10/29/2024 19:06:51 10/29/19 25 10/29/2024 LIPID PANEL LDL cholesterol, calculated 81 mg/dL 0-130 NIH OMKAR NSUS REPOR T RECOM MENDA TIONS FOR LDL: ADULT CHILD LOW RISK <130 <110 (OPTI MAL LDL) <100 ----- RONAL RLINE : 130-1 59 ----- HIGH RISK: >160 >130 A TRIGL YCERI DE RESUL T >400 INVAL IDATE S THE CALCU LATIO N FOR LDL FRACT IONAT ION - THE LDL RESUL T WILL NOT BE REPOR ALYSON. Not Available [facility] (Lab) [address] [place], [address], 10/29/2024 19:06:51 10/29/1910/29/2024 URINA LYSIS COMPL ETE, IRIS color YELLOW Not Available [facility] (Lab) [address] [place], [address], 10/29/2024 19:07:01 10/29/19 25 10/29/2024 URINA LYSIS COMPL ETE, IRIS appear CLEAR Not Available [facility] (Lab) [address] [place], [address], 10/29/2024 19:07:01 10/29/19 25 10/29/2024 URINA LYSIS COMPL ETE, IRIS specific gravity 1.021 1.001- 1.030 Not Available [facility] (Lab) [address] [place], [address], 10/29/2024 19:07:01 10/29/19 25 10/29/2024 URINA LYSIS COMPL ETE, IRIS pH 6.5 pH_un its 5.0-9. 0 Not Available [facility] (Lab) [address] [place], [address], 10/29/2024 19:07:01 10/29/19 25 10/29/2024 URINA LYSIS COMPL ETE, IRIS leukocytes NEGATI VE suzie/u L negati ve- Not Available [facility] (Lab) [address] [place], [address], 10/29/2024 19:07:01 10/29/19 25 10/29/2024 URINA LYSIS COMPL ETE, IRIS nitrite NEGATI VE negati ve- Not Available [facility] (Lab) [address] [place], [address], 10/29/2024 19:07:01 10/29/19 25 10/29/2024 URINA LYSIS COMPL ETE, IRIS protein NEGATI VE mg/dL negati ve- Not Available [facility] (Lab) [address] [place], [address], 10/29/2024 19:07:01 10/29/19 25 10/29/2024 URINA LYSIS COMPL ETE, IRIS glucose NORMAL mg/dL normal - Not Available [facility] (Lab) [address] [place], [address], 10/29/2024 19:07:01 10/29/19 25 10/29/2024 URINA LYSIS COMPL ETE, IRIS ketones NEGATI VE mg/dL negati ve- Not Available [facility] (Lab) [address] [place], [address], 10/29/2024 19:07:01 10/29/19 25 10/29/2024 URINA LYSIS COMPL ETE, IRIS urobilinogen NORMAL mg/dL normal - Not Available [facility] (Lab) [address] [place], [address], 10/29/2024 19:07:01 10/29/19 25 10/29/2024 URINA LYSIS COMPL ETE, IRIS bilirubin NEGATI VE mg/dL negati ve- Not Available [facility] (Lab) [address] [place], [address], 10/29/2024 19:07:01 10/29/19 25 10/29/2024 URINA LYSIS COMPL ETE, IRIS blood NEGATI VE mg/dL negati ve- Not Available [facility] (Lab) [address] [place], [address], 10/29/2024 19:07:01 10/29/19 25 10/29/2024 URINA LYSIS COMPL ETE, IRIS white blood cells 0-8 /i??h pfi?? 0-8 Not Available [facility] (Lab) [address] [place], [address], 10/29/2024 19:07:01 10/29/19 25 10/29/2024 URINA LYSIS COMPL ETE, IRIS red blood cells 0-4 /i??h pfi?? 0-4 Not Available [facility] (Lab) [address] [place], [address], 10/29/2024 19:07:01 10/29/19 25 10/29/2024 URINA LYSIS COMPL ETE, IRIS bacteria NONE Not Available [facility] (Lab) [address] [place], [address], 10/29/2024 19:07:01 10/29/19 25 10/29/2024 URINA LYSIS COMPL ETE, IRIS squamous epithelial NONE /i??l pfi?? Not Available [facility] (Lab) [address] [place], [address], 10/29/2024 19:07:01 10/29/19 25 10/29/2024 TSH thyroid-stim ulating hormone 3.200 uIU/m L 0.465- 4.680 Not Available [facility] (Lab) [address] [place], [address], 10/29/2024 19:33:11 10/29/19 25 10/29/2024 PSA SCREE N PSA medicare screen 1.82 NG/mL 0.00-4 .00 Not Available [facility] (Lab) [address] [place], [address], 10/29/2024 19:33:14 10/29/19 25 10/29/2024 HEMOG LOBIN A1C HA1C 5.8 % 4.0-6. 0 Diabe ne Scree kevan Crite pamella: <5.7% Consi stent with absen ce of diabe ne 5.7-6 .4% Consi stent with incre ased risk for diabe ne (pred iabet es) >OR=6 .5% Consi stent with diabe ne REFER ENCE: Diabe ne Care 2016, 39( ppl.1 ):s13 -s22 Not Available [facility] ([facility]) [address] [place], [address], 10/29/2024 19:43:32 01/07/20 24 01/07/2024 XR, lumbo sacra l spine , 2 or 3 view No observ ation record ed. [address], [address], 04/23/2024 11:42:01 01/07/20 24 01/07/2024 XR, lumbo sacra l spine , 2 or 3 view No observ ation record ed. [address], [address], 04/23/2024 11:42:01 Result Notes None recorded. Problems Name Problem SNOMED Code Status Onset Date Resolution Date Notes Provider Name and Address Organization Details Recorded Time Chest wall pain 996841279 Completed [facility] Available [facility] 3 00:58:47 Derangeme nt of medial meniscus 382338850 Completed Not Available [facility] 3 00:58:47 Hyperchol esterolem ia 19020201 Active Not Available [facility] 3 12:33:39 Standard chest X-ray abnormal 212779790 Completed Not Available [facility] 3 00:58:47 Insomnia 130304989 Active Not Available [facility] 3 12:33:40 Osteoarth ritis of knee 331136757 Completed Not Available [facility] 3 00:58:47 Ankle pain 641974171 Completed Not Available [facility] 3 00:58:47 Benign prostatic hyperplas ia 650463558 Active Not Available [facility] 3 12:33:40 Low back pain 104902829 Active Not Available [facility] 3 12:33:40 Chest pain 84412998 Completed Not Available [facility] 3 00:58:48 Current tear of medial cartilage AND/OR meniscus of knee Completed Not Available [facility] 3 00:58:48 Current tear of lateral cartilage AND/OR meniscus of knee Completed Not Available [facility] 3 00:58:48 Knee pain Completed Not Available [facility] 3 00:58:48 Depressiv e disorder 58324553 Active Not Available [facility] 3 12:33:40 Chondroma lacia of patella 89094877 Active Not Available [facility] 3 12:33:40 Osteoarth ritis 811726909 Active knee Not Available [facility] 3 12:33:40 Hypothyro idism 66976678 Active Not Available [facility] 3 12:33:40 Obesity 216755688 Active Not Available [facility] 3 12:33:40 Derangeme nt of knee 49360657 Completed Not Available [facility] 3 00:58:48 Blood glucose outside reference range 082938364 Active 2017 Not Available [facility] 3 12:33:40 Erectile dysfuncti on 012056210 Active 2021 Not Available [facility] 3 12:33:40 Hyperlipi demia 56280053 Active 2021 Not Available [facility] 3 12:33:40 Serum creatinin e above reference range 321325894 Active 2021 Not Available [facility] 3 12:33:39 Swelling of scrotum 606589879 Active 2021 Not Available [facility] 3 12:33:40 Hyperglyc emia 53007599 Active 2021 Not Available [facility] 3 12:33:40 Abdominal pain 98055268 Active 2022 Not Available [facility] 3 12:33:40 Kidney stone 62384311 Active 2022 Not Available [facility] 3 12:33:40 Diverticu losis of colon 014719406 Active 2023 Yoan Davila MD [address], [place], [address] , [facility] 4 11:55:22 Diverticu litis of colon 784583042 Active 2023 Yoan Davila MD [address], [place], [address] , [facility] 4 12:00:11 Bilateral tinnitus 60722005737 02 Active 2023 Mario Mina MD [address], [place], [address] , [facility] 4 12:41:11 Allergic rhinitis 92005952 Active 2023 Mario Mina MD [address], [place], [address] , [facility] 4 12:41:23 Sinusitis 83254887 Active 2024 Yoan Davila MD [address], [place], [address] , [facility] 5 14:32:06 Thrombocy topenic disorder 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 Procedures Surgical History Date Name Laterality Status Provider Name and Address Organization Details Recorded Time 04/23/20 Medicare Wellness CPT Code, subsequent completed Ana María Porter RN [facility] [employer] 04/23/2024 12:21:58 04/03/20 23 Medicare Wellness CPT Code, subsequent completed Cecilia Mccann RN [facility] 04/03/2023 11:30:20 07/24/20 21 SEPTOPLASTY (SURG) completed Camila Jessica RN [facility] 04/03/2023 11:42:49 11/05/19 19 Colon ca scrn not hi rsk ind completed Not Available [facility] 11/21/2022 00:53:09 Tonsillectomy completed Not Available [facility] 11/21/2022 00:53:09 Imaging Results None recorded. Procedure Notes None recorded. Medical Equipment None Reported. Allergies No known drug allergies Medications Name Sig Start Date Stop Date Status Note LastModified by Organization Details LastModified Time celecoxib 200 mg capsule TK 1 C PO BID active Not Available Not Available No t Available amoxicillin 500 mg capsule TAKE 1 CAPSULE BY MOUTH THREE TIMES A DAY FOR 7 DAYS 12/08 completed Not Available Not Available Not Available levothyroxi ne 175 mcg tablet TAKE 1 TABLET DAILY active Not Available Not Available No t Available prednisone 10 mg tablet active Not Available Not Available Not Available doxycycline hyclate 100 mg capsule TAKE 1 CAPSULE BOTH EYES ONCE A DAY 10/04 completed Not Available Not Available Not Available trazodone 50 mg tablet TAKE 1 TABLET BY MOUTH EVERY DAY 2024 active BRADY 5 NOV 6 ok to rf Not Available Not Available Not Available azithromyci n 250 mg tablet TK 2 TS PO TODAY THEN 1 T D FOR 4 DAYS active Not Available Not Available No t Available ibuprofen 800 mg tablet Take 1 tablet 3 times a day by oral route. active Not Available Not Available No t Available hydrocodone 5 mg-acetamin ophen 325 mg tablet TAKE 1 TO 2 TABLETS BY MOUTH EVERY 6 HOURS NEEDED 03/28 completed Not Available Not Available Not Available meloxicam 15 mg tablet Take 1 tablet every day by oral route as needed for 30 days. 04/10 completed Not Available Not Available Not Available promethazin e 12.5 mg tablet 10/07 completed Not Available Not Available Not Available ondansetron HCl 4 mg tablet Take 1 tablet 4 times a day by oral route as needed. 10/08 completed Not Available Not Available Not Available Viagra 50 mg tablet Take 1 tablet every day by oral route as needed. active Not Available Not Available No t Available Doc-Q-Lace 100 mg capsule TK 1 C PO BID active Not Available Not Available No t Available hydroxyzine pamoate 50 mg capsule 01/09 completed Not Available Not Available Not Available metronidazo le 500 mg tablet TAKE 1 TABLET BY MOUTH EVERY 8 HOURS 04/23 completed Not Available Not Available Not Available ciprofloxac in 500 mg tablet TAKE 1 TABLET BY MOUTH TWICE A DAY FOR 7 DAYS 12/29 completed Not Available Not Available Not Available Tamiflu 75 mg capsule Take 1 capsule twice a day by oral route for 5 days. active Not Available Not Available No t Available sulfamethox azole 800 mg-trimetho prim 160 mg tablet TAKE 1 TABLET BY MOUTH TWICE DAILY active Not Available Not Available No t Available tramadol 50 mg tablet TAKE 1 TABLET BY MOUTH NIGHTLY NEEDED FOR PAIN active Not Available Not Available No t Available simvastatin 40 mg tablet TAKE 1 TABLET DAILY 2024 active Not Available Not Available Not Avai lable ketorolac 10 mg tablet 04/07 completed Not Available Not Available Not Available ketorolac 0.5 % eye drops INSTILL 1 DROP THREE TIMES DAILY IN THE OPERATED EYE DIRECTED active Not Available Not Available No t Available Macrobid 100 mg capsule Take 1 capsule every 12 hours by oral route for 7 days. active Not Available Not Available No t Available oxycodone-a cetaminophe n 5 mg-325 mg tablet 10/08 completed Not Available Not Available Not Available prednisolon e acetate 1 % eye drops,suspe nsion INSTILL ONE DROP IN THE LEFT EYE THREE TIMES DAILY FOR ONE WEEK. 12/08 completed Not Available Not Available Not Available tamsulosin 0.4 mg capsule TAKE 1 CAPSULE BY MOUTH ONCE DAILY 09/06 completed Not Available Not Available Not Available meclizine 25 mg tablet 2019 active Not Available Not Available Not Avai lable hydrocodone 7.5 mg-acetamin ophen 325 mg tablet TK 1 TO 2 TS PO Q 8 H PRN 08/01 completed Not Available Not Available Not Available pantoprazol e 40 mg tablet,mer yed release Take 1 tablet every day by oral route. 10/08 completed Not Available Not Available Not Available erythromyci n 5 mg/gram (0.5 %) eye ointment APPLY 1/2 INCH STRIP TO BOTH EYE INCISION SITES THREE TIMES A DAY. 12/29 completed Not Available Not Available Not Available trazodone 150 mg tablet TAKE 1 TABLET EVERY DAY AT BEDTIME 10/08 completed Not Available Not Available Not Available polymyxin B sulfate 10,000 unit-trimet hoprim 1 mg/mL eye drops INSTILL 1 DROP INTO OPERATED EYE 4 TIMES DAILY FOR 7 DAYS active Not Available Not Available No t Available levothyroxi ne 150 mcg tablet TAKE 1 TABLET DAILY 2024 active Not Available Not Available Not Avai lable diclofenac sodium 75 mg tablet,mer yed release TAKE 1 TABLET BY MOUTH TWICE A DAY DIRECTED TAKE WITH FOOD 05/04 completed Not Available Not Available Not Available hydrocodone 5 mg-acetamin ophen 500 mg tablet active Not Available Not Available No t Available azelastine 137 mcg (0.1 %) nasal spray [place] 2 sprays twice a day by intranasa l route. 04/29 completed Not Available Not Available Not Available ibuprofen 600 mg tablet TK 1 T PO TID WITH FOOD active Not Available Not Available No t Available methylpredn isolone 4 mg tablets in a dose pack TAKE 6 TABLETS ON DAY 1 DIRECTED ON PACKAGE AND DECREASE BY 1 TAB EACH DAY FOR A TOTAL OF 6 DAYS 12/08 completed Not Available Not Available Not Available fluticasone propionate 50 mcg/actuati on nasal spray,suspe nsion INSTILL 2 SPRAYS BY INTRANASA L ROUTE EVERY DAY 04/29 completed BRADY 5 NOV 5 ok to rf Not Available Not Available Not Available naproxen 500 mg tablet TAKE 1 TABLET BY MOUTH TWICE A DAY FOR 10 DAYS 12/08 completed Not Available Not Available Not Available diazepam 5 mg tablet 10/08 completed Not Available Not Available Not Available amoxicillin 875 mg-potassiu m clavulanate 125 mg tablet 09/30 completed Not Available Not Available Not Available amoxicillin 500 mg-potassiu m clavulanate 125 mg tablet TAKE 1 TABLET BY MOUTH THREE TIMES A DAY 04/23 completed Not Available Not Available Not Available tobramycin 0.3 %-dexametha sone 0.1 % eye drops,suspe nsion INSTILL 1 DROP INTO BOTH EYES TWICE A DAY 10/04 completed Not Available Not Available Not Available Restasis 0.05 % eye drops in a dropperette active Not Available Not Available Not Available tadalafil 5 mg tablet TAKE 1 TABLET BY MOUTH EVERY DAY active Not Available Not Available No t Available GaviLyte-G 236 gram-22.74 gram-6.74 gram-5.86 gram oral solution 04/07 completed Not Available Not Available Not Available Xarelto 10 mg tablet TK 1 T PO Q 24 H active Not Available Not Available No t Available Lotemax 0.5 % eye gel drops active Not Available Not Available Not Available Xhance 93 mcg/actuati on breath activated aerosol [place] 1 spray twice a day by intranasa l route for 30 days. 07/03 completed Not Available Not Available Not Available levothyroxi ne 175 mcg capsule Take 1 capsule every day by oral route for 90 days. active Not Available Not Available No t Available Fluzone High-Dose 2019-20 (PF) 180 mcg/0.5 mL intramuscul ar syringe PHARMACIS T ADMINISTE RED IMMUNIZAT ION ADMINISTE RED AT TIME OF DISPENSIN G 09/18 completed Not Available Not Available Not Available Vitals Date Recorded Body height Body mass index (BMI) Body weight Body temperature Heart rate Oxygen saturation Oxygen saturation in Arterial blood by Pulse oximetry Systolic And Diastolic Provider Name and Address Organization Details Last Updated DateTime 5 179.07 cm 33.2 kg/m2 093128. 21 g 97.8 [degF] 60 /min 98 % 98 % 132/68 mm[Hg] Verito vicente [employer] 5 14:22:52 Date Recorded Body height Body mass index (BMI) Body weight Body temperature Heart rate Oxygen saturation Oxygen saturation in Arterial blood by Pulse oximetry Systolic And Diastolic Provider Name and Address Organization Details Last Updated DateTime 5 179.07 cm 33.2 kg/m2 964089. 21 g 97 [degF] 73 /min 97 % 97 % 140/80 mm[Hg] JENNIFER Rebolledo [employer] 5 10:47:03 Date Recorded Body height Body mass index (BMI) Body weight Body temperature Provider Name and Address Organization Details Last Updated DateTime 11/12/2023 179.07 cm 34.1 kg/m2 656763.04 g 97.7 [degF] Camila Jessica RN [facility] [employer] [facility] 11/12/2023 12:09:53 Date Recorded Body height Body mass index (BMI) Body weight Body temperature Heart rate Oxygen saturation Oxygen saturation in Arterial blood by Pulse oximetry Systolic And Diastolic Provider Name and Address Organization Details Last Updated DateTime 4 179.07 cm 33.1 kg/m2 628506. 61 g 97.7 [degF] 64 /min 97 % 97 % 140/70 mm[Hg] Jennifer castillo [facility] 4 11:14:47 Date Recorded Pain severity - 0-10 verbal numeric rating [Score] - Reported Provider Name and Address Organization Details Last Updated DateTime 04/23/2024 0 Ana María Porter RN [employer] 04/23/2024 12:22:23 Date Recorded Body height Body mass index (BMI) Body weight Body temperature Heart rate Oxygen saturation Oxygen saturation in Arterial blood by Pulse oximetry Systolic And Diastolic Provider Name and Address Organization Details Last Updated DateTime 5 179.07 cm 33.7 kg/m2 519354. 98 g 97.1 [degF] 72 /min 96 % 96 % 130/70 mm[Hg] Jennifer castillo Brigido [facility] 5 11:15:11 Social History Question Answer Notes LastModified by Organization Details LastModified Time Tobacco Smoking Status Former Smoker Not Available [facility] 11/21/2022 00:51:11 Do You Have An Advance Directive? No [id number] Information not available 11/21/2022 Are You Blind Or Do You Have Difficulty Seeing? No MIGRATION.[id number] [id number] Information not available 11/21/2022 Is Blood Transfusion Acceptable In An Emergency? Yes [email or web address] Information not available 04/23/2024 What Is Your Level Of Caffeine Consumption? Occasional [email or web address] Information not available 04/23/2024 In The 14 Days Before Symptom Onset, Have You Had Close Contact With A Laboratory-conf irmed COVID-19 While That Case Was Ill? No Not Applicable [email or web address] Information not available 04/23/2024 In The 14 Days Before Symptom Onset, Have You Had Close Contact With A Person Who Is Under Investigation For COVID-19 While That Person Was Ill? No Not Applicable [email or web address] Information not available 04/23/2024 Are You Deaf Or Do You Have Serious Difficulty Hearing? No MIGRATION.030 [id number] Information not available 11/21/2022 What Type Of Diet Are You Following? REGULAR MIGRATION.030 [id number] Information not available 11/21/2022 Which Illicit Or Recreational Drugs Have You Used? None MIGRATION.030 [id number] Information not available 11/21/2022 What Is The Highest Grade Or Level Of School You Have Completed Or The Highest Degree You Have Received? [id number] [email or web address] Information not available 04/23/2024 How Many Days Of Moderate To Strenuous Exercise, Like A Brisk Walk, Did You Do In The Last 7 Days? 3 [email or web address] Information not available 04/23/2024 On Those Days That You Engage In Moderate To Strenuous Exercise, How Many Minutes, On Average, Do You Exercise? 60 [email or web address] Information not available 04/23/2024 Have There Been Any Changes To Your Family Or Social Situation? No MIGRATION.030 [id number] Information not available 11/21/2022 What Is The Fluoride Status Of Your Home? Fluoridated MIGRATION.030 [id number] Information not available 11/21/2022 When Did You Quit Smoking? 16+yearssincelastc igarette [email or web address] Information not available 04/03/2023 Are There Any Guns Present In Your Home? No [email or web address] Information not available 04/23/2024 Do You Use Insect Repellent Routinely? No [email or web address] Information not available 04/23/2024 Where Do You Live? [place]House MIGRATION.030 [id number] Information not available 11/21/2022 Presence Of Domestic Violence No [email or web address] Information not available 04/03/2023 Guns Present In The Home? No [email or web address] Information not available 04/23/2024 Are You Able To Care For Yourself? Yes [email or web address] Information not available 04/03/2023 Are You Blind Or Do Yo Have Difficulty Seeing? No [email or web address] Information not available 04/03/2023 Are You Deaf Or Do You Have Serious Difficulty Hearing? No [email or web address] Information not available 04/03/2023 General Stress Level? Low [email or web address] Information not available 04/23/2024 Live Alone Of With Others? With Others [email or web address] Information not available 04/03/2023 Do You Have A Medical Power Of Multi Needle Machine Operator? No [email or web address] Information not available 04/23/2024 What Was The Date Of Your Most Recent Tobacco Screening? 04/23/2024 [email or web address] Information not available 04/23/2024 Do You Have Any Pets? No [email or web address] Information not available 04/23/2024 What Is Your Relationship Status? MIGRATION.0301 [id number] Information not available 11/21/2022 Do You Use Your Seat Belt Or Car Seat Routinely? Yes MIGRATION.0301 [id number] Information not available 11/21/2022 Are You Sexually Active? No [email or web address] Information not available 04/23/2024 Do You Have Smoke And Carbon Monoxide Detectors In Your Home? Yes MIGRATION.0301 [id number] Information not available 11/21/2022 Are You Passively Exposed To Smoke? No [email or web address] Information not available 04/23/2024 Are There Any Smokers In Your House? No [email or web address] Information not available 04/23/2024 How Much Tobacco Do You Smoke? 1 PPD [email or web address] Information not available 04/23/2024 What Types Of Sporting Activities Do You Participate In? None [email or web address] Information not available 04/23/2024 Do You Use Sunscreen Routinely? No MIGRATION.0301 [id number] Information not available 11/21/2022 Has Tobacco Cessation Counseling Been Provided? No [email or web address] Information not available 04/23/2024 Have You Recently Traveled Abroad? No [email or web address] Information not available 04/23/2024 Do You Have Difficulty Walking Or Climbing Stairs? No MIGRATION.0301 [id number] Information not available 11/21/2022 Do You Have Any Dietary Restrictions? No [email or web address] Information not available 04/23/2024 Sex: Unknown Functional Status Question Answer Note LastModified by Organizat ion Details LastModified Time Do you or have you ever used smokeless tobacco? Never used smokeless tobacco MIGRATION.[id number] Information not available 11/21/2022 Are you currently employed? No [email or web address] Information not available 04/23/2024 Do you have transportation difficulties? No MIGRATION.563787 6640 Information not available 11/21/2022 Are you able to care for yourself independently? Yes MIGRATION.[id number] 2015 Information not available 11/21/2022 Do you have difficulty dressing, bathing, grooming, or toileting? No MIGRATION.141709 6210 Information not available 11/21/2022 Do you or have you ever used e-cigarettes or vape? Never used electronic cigarettes MIGRATION.[id number] Information not available 11/21/2022 What is your exercise level? Moderate MIGRATION.646198 4753 Information not available 11/21/2022 Do you use any illicit or recreational drugs? No [email or web address] Information not available 04/23/2024 Do you or have you ever used any other forms of tobacco or nicotine? No [email or web address] Information not available 04/23/2024 What is your level of alcohol consumption? None MIGRATION.530098 8184 Information not available 11/21/2022 Are you able to walk independently without assistance or assistive devices? YESWOREST MIGRATION.124211 1270 Information not available 11/21/2022 Do you have difficulty doing errands alone? No MIGRATION.285557 2357 Information not available 11/21/2022 What is your occupation? Retired MIGRATION.[id number] 0327 Information not available 11/21/2022 Mental Status Question Answer Note LastModified by Organizat ion Details LastModified Time Do you feel stressed (tense, restless, nervous, or anxious, or unable to sleep at night)? [id number] MIGRATION.[id number] Information not available 11/21/2022 Do you have difficulty concentrating, remembering or making decisions? No MIGRATION.[id number] 26 Information not available 11/21/2022 Family History Relationship Description Onset Age of this Age Resolved Age Notes LastModified by Organization Details LastModified Time Father No current problems or disability [email or web address] Not available 11/12 12:09:04 Mother No current problems or disability [email or web address] Not available 11/12 12:09:04 Medical History Condition Response LUNG DISEASE/DISORDER N HISTORY OF DRUG ABUSE N BLOOD DISEASES N EAR OR HEARING PROBLEMS N ANEURYSM N AIDS/HIV N HYPERTENSION N BLOOD TRANSFUSION N ANEMIA/BLOOD DISORDER N CHRONIC EAR INFECTIONS N INSOMNIA N HIGH CHOLESTEROL / HYPERLIPIDEMIA Y HYPOTHYROIDISM Y HISTORY WITH COMPLICATIONS WITH ANESTHES IA ? N SEASONAL ALLERGIES N HEPATITIS / LIVER DISEASE N DIZZINESS N CANCER: SPECIFY N ANESTHESIA COMPLICATIONS N Immunizations Vaccine Type Date Status Note Provider Nam e and Address Organization Details Recorded Time Influenza, high-dose, trivalent, PF 5 completed Not Available [facility] 04/29/2025 11:13:45 COVID-19, mRNA, LNP-S, PF, 100 mcg/0.5mL dose or 50 mcg/0.25mL dose 1 completed Not Available [facility] 04/29/2025 11:13:45 COVID-19, mRNA, LNP-S, PF, 100 mcg/0.5mL dose or 50 mcg/0.25mL dose 1 completed Not Available [facility] 04/29/2025 11:13:45 COVID-19, mRNA, LNP-S, PF, 100 mcg/0.5mL dose or 50 mcg/0.25mL dose 1 completed Not Available [facility] 04/29/2025 11:13:45 Influenza, high-dose, quadrivalent, PF 2 completed Not Available [facility] 04/29/2025 11:13:45 Influenza, adjuvanted, quadrivalent, PF 3 completed Not Available [facility] 04/29/2025 11:13:45 Influenza, high-dose, trivalent, PF 4 completed Not Available [facility] 04/29/2025 11:13:45 influenza, unspecified formulation 5 completed ZEYAD Barrientos [address] [facility], [facility] [address], [place], [address], [facility] [employer] 07/04/2025 13:23:32 Influenza, high-dose, trivalent, PF 0 completed Not Available [facility] 11/21/2022 01:07:54 Influenza, high-dose, trivalent, PF 9 completed Not Available [facility] 11/21/2022 01:07:54 Influenza, high-dose, trivalent, PF 8 completed Not Available [facility] 11/21/2022 01:07:54 Influenza, split virus, quadrivalent, preservative 1 completed Not Available [facility] 11/21/2022 01:07:54 Influenza, high-dose, trivalent, PF 6 completed Not Available [facility] 11/21/2022 01:07:54 Influenza, split virus, quadrivalent, preservative 0 completed Not Available [facility] 11/21/2022 01:07:54 influenza, unspecified formulation 8 completed Not Available [facility] 11/21/2022 01:07:54 Influenza, split virus, trivalent, preservative 7 completed Not Available [facility] 11/21/2022 01:07:55 Influenza, high-dose, trivalent, PF 1 completed Not Available [facility] 11/21/2022 01:07:55 Pneumococcal conjugate PCV 13 9 completed Not Available [facility] 11/21/2022 01:07:55 pneumococcal polysaccharide PPV23 7 completed Not Available [facility] 11/21/2022 01:07:55 Influenza, split virus, quadrivalent, preservative 9 completed Not Available [facility] 11/21/2022 01:07:55 Past Encounters Encounter ID Performer Location Encounter Start Date Encounter Closed Date Diagnosis/Indication Diagnosis SNOMED-CT Code Diagnosis ICD10 Code Diagnosis IMO Codes Diagnosis Note [id number] Yoan Davila MD [facility] Internal Med [address] [facility] [place] [address] 03/28/2021 00:00:00 03/28/2021 11:30:18 [id number] [facility] [place] [address] [place] [address] 06/14/2021 00:00:00 06/14/2021 12:39:06 [id number] Mario Mnia MD [facility] [place] [address] [place] [address] 07/04/2021 00:00:00 07/04/2021 16:19:11 [id number] Mario Mina MD [facility] [place] [address] [place] [address] 08/01/2021 00:00:00 08/01/2021 14:16:22 [id number] Yoan Davila MD [facility] [address] [place] [address] 09/26/2021 00:00:00 09/26/2021 11:18:41 [id number] Yoan Davila MD [facility] [address] [place] [address] 01/24/2022 00:00:00 01/24/2022 11:13:16 [id number] Yoan Davila MD [facility] [address] [place] [address] 05/04/2022 00:00:00 05/04/2022 11:20:04 [id number] Yoan Davila MD [facility] Internal [facility] [address] [place] [address] 10/04/2022 00:00:00 10/04/2022 12:11:01 [id number] Yoan Davila MD [facility] [address] [place] [address] 04/03/2023 10:44:33 04/03/2023 11:46:26 Hypothyroidism 22534447 E03.9 stable Osteoarthritis 279079273 M19.90 meds help Benign pro static hyperplasia 992535476 N40.0 meds help Erectile dysfunction 860 990486 F52.21 better with meds Hyperglycemia 34667179 R 73.9 under control with diet Insomnia 098308533 G47.0 0 has tried otc Kidney stone 12618418 N2 0.0 left kidney, incidental finding seen on CT scan 09/13, Adult heal th examination 940291991 Z00.00 PSA- 3 Colonoscop y- 11/11, nl, next in 10 yrs COVID-Has had 3 FLu- 06/2021 P13- 09/2018 [id number] 017 Screening for disorder 676796217 Z13.9 [id number] Yoan Davila MD [facility] Internal Med [address] [place] [address] 10/04/2023 10:41:17 10/04/2023 12:12:58 Hypothyroidism 97521537 E03.9 stable Osteoarthritis 942317530 M19.90 meds help Benign pro static hyperplasia 281907177 N40.0 meds help Erectile dysfunction 860 846744 F52.21 better with meds Hyperglycemia 68863677 R 73.9 under control with diet Insomnia 426714180 G47.0 0 has tried otc Kidney stone 01066539 N2 0.0 left kidney, incidental finding seen on CT scan 09/13, Adult heal th examination 192657092 Z00.00 PSA- 3 Colonoscop y- 11/11, nl, next in 10 yrs COVID-Has had 3 FLu- 06/2021, 09/14 P13- 09/2018 [id number]/2 017 Hyperlipidemia 47612112 E78.5 Diverticul osis of colon 632450043 K57.30 drink more Screening for malignant neoplasm of prostate 143312892 Z12.5 Diverticul itis of colon 157138916 K57.32 [id number] Mario Mina MD [facility] [place] [address] [place] [address] 11/12/2023 11:55:12 11/12/2023 12:58:42 Bilateral tinnitus 4150012420 102 H93.13 Allergic rhinitis 420545 04 J30.9 [id number] Yoan Davila MD [facility] Internal Med [address] [facility] [place] [address] 04/23/2024 10:52:10 04/23/2024 11:58:19 Hypothyroidism 23119985 E03.9 stable labs Osteoarthritis 629783435 M19.90 meds help Benign pro static hyperplasia 119049203 N40.0 meds help Erectile dysfunction 860 774931 F52.21 better with meds Hyperglycemia 88572045 R 73.9 diet discussed Insomnia 208699858 G47.0 0 has tried otc Kidney stone 10236785 N2 0.0 left kidney, incidental finding seen on CT scan 09/13, Adult [facility] examination 085414907 Z00.00 PSA-4Colono scopy- 11/11, nl, next in 10 yrsCOVID-H as had 3FLu- 06/2021, 09/14P13- 09/2018PPV Hyperlipidemia 06277715 E78.5 under control Diverticul osis of colon 276349094 K57.30 drink more water and eat more fiber Screening for disorder 916831377 Z13.9 [id number] Yoan Davila MD [facility] Internal Med [facility] [address] [facility] [place] [address] 10/07/2024 14:00:49 10/07/2024 14:48:31 Sinusitis 54172373 J32.9 symptoms could be due to sinusitis but still could be related to any other disorderhe will make appt with his ophthalmol ogist today. [id number] Yoan Davila MD [facility] Internal Med [address] [facility] [place] [address] 10/29/2024 10:42:03 10/29/2024 11:28:31 Hypothyroidism 69249579 E03.9 stable Osteoarthritis 588109735 M19.90 meds help Benign pro static hyperplasia 233944939 N40.0 meds help Erectile dysfunction 860 328774 F52.21 better with meds Hyperglycemia 35227313 R 73.9 diet discussed Insomnia 323343663 G47.0 0 has tried otc Kidney stone 86967956 N2 0.0 left kidney, incidental finding seen on CT scan 09/13, Adult [facility] examination 526813738 Z00.00 PSA-4Colono scopy- 2, nl, next in 10 yrsCOVID-H as had 3FLu- 06/2021, 09/14, - 09/2018PPV Hyperlipidemia 43477561 E78.5 under control Diverticul osis of colon 075675382 K57.30 drink more water and eat more fiber Screening for malignant neoplasm of prostate 176673565 Z12.5 [id number] Yoan Davila MD [facility] Internal Med [address] [place] [address] 04/29/2025 11:10:29 04/29/2025 11:35:09 Hypothyroidism 94073479 E03.9 stable TSH Osteoarthritis 058807233 M19.90 OTC Benign pro static hyperplasia 698918319 N40.0 meds help Erectile dysfunction 860 011848 F52.21 better with meds Hyperglycemia 92322277 R 73.9 diet discussed Insomnia 419602536 G47.0 0 OTC NOT HELPING Kidney stone 96341966 N2 0.0 left kidney, incidental finding seen on CT scan 09/13, Hyperlipidemia 15031839 E78.5 under control Diverticul osis of colon 238835178 K57.30 drink more water and eat more fiber Adult heal th examination 073296687 Z00.00 PSA- 11/17Colono scopy- 11/11, nl, next in 10 yrsCOVID-H as had 3FLu- 06/2021, 09/14, - 09/2018PPV Health Concerns Section Related Observation LastModified by Organization Detai ls LastModified Time None Recorded Concern Status LastModified by Organization Details LastModified Time None Recorded Advance Directives Directive N: Payers Insurance Date Sequence Insurance Name Policy Number Policy Laguerre Covered Member ID Laguerre Member ID Guarantor Name 07/13/2025 2 [facility] (MEDICARE SUPPLEMENT) Ru Villa [id number] Ru Villa 04/29/2025 2 [facility] (MEDICARE SUPPLEMENT) Ru Villa [id number] Ru Villa 07/12/2025 1 MEDICARE-[place] (MEDICARE) Ru Villa [id number] Ru Villa Notes Date Note Type Note Provider Name and Address Organization Details Recorded Time 11/12/2023 text/html tinnitus right greater than left. also reports nasal congestion. Didnt like Flonase but has been using Colby Mina MD [address], [place], [address], [place] [employer] 11/12/2023 12:42:15 04/23/2024 text/html Pt is here for 6 month f/u.PT IS FASTINGMedicare Wellness Exam Hyperlipidemia- on meds, labs good in 10/14 , Trig were little highMeds- Simvastatin 40 mg dailyHypothyroidism- on meds, labs good in 10/16Meds- Levothyroxine 175 mcg dailyED- cialis helps-- on daily medsObesity- watching diet, lost 6 lbspre- diabetes/Hyperglycem ia- A1c was 5.9, diet discussed, lose weightInsomnia- better without medsBPH- on daily cialis and symptoms are betterMeds- cialis 5 mg qds/p left ankle fusion 2017 Diverticulosis- no symptoms h/o diverticulitis in 1989 Yoan Davila MD [address], [place], [address], [employer] 04/23/2024 13:08:03 10/07/2024 text/html ROS as noted in the HPI pt is here for sharp pain (feel like a knife stabbing)behind his left eye around every 30 seconds, along with a watery discharge he states since 4 am this morning, with headaches. pt also has a sore throat only on the left side also 4 am side. otc Excedrin and cough drop.sinus pressure on the left sideno feverno change in visionwatering in the eyehad nl eye exam 2 weeks agono weakness or numbness Yoan Davila MD [address], [place], [address], [employer] 10/07/2024 14:48:01 10/29/2024 text/html Pt is here for 6 month f/u.PT IS FASTING ( Medicare/RIGO ) Hyperlipidemia- on meds, labs good in 10/14 , Trig were little highMeds- Simvastatin 40 mg dailyHypothyroidism- on meds, labs dueMeds- Levothyroxine 175 mcg dailyED- cialis helps - on daily medsObesity- watching diet, Has not gainedPre- diabetes/Hyperglycem ia- A1c was 5.9, diet discussed,Insomnia- better without medsBPH- on daily cialis and symptoms are betterMeds- cialis 5 mg qds/p left ankle fusion 2016 Diverticulosis- no symptoms h/o diverticulitis in 1989 Yoan Davila MD [address] [facility] [address], [place], [address], [employer] 10/29/2024 11:16:54 04/29/2025 text/html Pt is here for 6 month f/u.PT IS FASTING ( Medicare/RIGO ) C/P PAON IN THE RIGHT SHPULDER BLADE AREA FOR FEW MONTHS, SOME TIMES PAIN IN THE RIGHT LOWER BACK Hyperlipidemia- On meds, labs good 11/17Meds- Simvastatin 40 mg dailyHypothyroidism- on meds, labs goodMeds- Levothyroxine 175 mcg dailyED- Tadalafil 5mg daily helps - on daily medsObesity- watching diet, Has gained 3 lbsPre- diabetes/Hyperglycem ia- A1c was 5.8 ( 10/2024), diet discussedInsomnia- better without medsBPH- on daily cialis and symptoms are betterMeds- Tadalafil 5mgs/p left ankle fusion 2016 Diverticulosis- no symptoms h/o diverticulitis in 1989 Yoan Davila MD [address], [place], [address], [employer] [facility] [employer] 04/29/2025 11:33:15
--- OUTSIDE RECORDS SUMMARY | 2025-07-19 18:40 | XMS_ITS | Clinical Summary ---
Author Organization [facility] Address [facility] [address] [place] [address] Care Team Providers Care Mathematician Research Name Role Phone Sai Davila MD Primary Care Provider [phone] Allergies No known active allergies Medications nitrofurantoin, macrocrystal-mo nohydrate, 100 MG capsule Take 100 mg by mouth 2 (two) times daily. 04/13/2020 Active simvastatin 40 MG tablet Take 40 mg by mouth nightly at bedtime. Active levothyroxine 150 MCG tablet Take 150 mcg by mouth every morning. Active tadalafil 5 MG tablet Take by mouth daily. Active tamsulosin 0.4 MG Cap Take 1 capsule (0.4 mg total) by mouth daily. 5 capsule 04/15/2020 Active Social History Tobacco Use Types Packs/Day Years Used Date Smoking Tobacco: Never Smokeless Tobacco: Never Alcohol Use Standard Drinks/Week Comments Never 0 (1 standard drink = 0.6 oz pur e alcohol) AUDIT-C Answer Date Recorded Q1: How often do you have a drink containing alc ohol? Never 04/15/2020 Average Number of Drinks Not on file 020 Frequency of Binge Drinking Not on file 03/24 Sex and Gender Information Value Date Recorded Sex Assigned at Not on file Legal Sex Male 10:26 PM CDT Gender Identity Not on file Sexual Orientation Not on file Last Filed Vital Signs Vital Sign Reading Time Taken Comments Blood Pressure 153/73 04/15/2020 2:45 PM CDT Pulse 60 04/15/2020 1:52 PM CDT Temperature 36.1 C (97 F) 04/15/2020 10:08 AM CDT Respiratory Rate 20 04/15/2020 10:08 AM CDT Oxygen Saturation 92% 04/15/2020 2:45 PM CDT Inhaled Oxygen Concentration - - Weight 107.5 kg (237 lb) 04/15/2020 10:08 AM CDT Height 180.3 cm (5' 11) 04/15/2020 10:08 AM CDT Body Mass Index 33.05 04/15/2020 10:08 AM CDT Plan of Treatment Health Maintenance Due Date Last Done Comments Hepatitis C 1966 DTaP, Tdap and Td Vaccines (1 - Tdap) 1967 Zoster Vaccines (1 of 2) 1998 Annual Medicare Wellness Visit 2013 Pneumococcal Vaccine: 50+ Years (2 of 2 - PCV20 or PCV21) 10/07/2019 10/07/2018 RSV Immunization or 60+ Years (1 - 1-dose 75+ series) 2023 COVID-19 Vaccine (1 - season) 2025 Influenza Adult (#1) 2025 07/02/2019, 06/25/2018, 07/10/2017, Additional history exists Hepatitis A Vaccines Aged Out No long er eligible based on patient's age to complete this topic Meningococcal B Vaccine Aged Out No l onger eligible based on patient's age to complete this topic Meningococcal Vaccine Aged Out No kiesha eleni eligible based on patient's age to complete this topic RSV Immunizations Under 20 Months Aged Out No longer eligible based on patient's age to complete this topic Insurance MEDICARE [facility] Care Teams Mathematician Research Relationship Specialty Start Date End Date Sai Davila MD PCP - General INTERNAL MEDICINE 04/15/20
--- OUTSIDE RECORDS SUMMARY | 2025-07-19 18:40 | XMS_ITS | Clinical Summary ---
Author Organization [facility] Address [address] [place] [address] Care Team Providers Care Chemical Inspector Name Role Phone Sai Davila MD Primary Care Provider Source Comments [facility],non-owned Affiliates and Associated Physician Practices is amultiple site organization consisting of ambulatory clinics and hospital sitesin [place], [place], [place] and [place]. This disclosure is being madepursuant to the Care Everywhere program and may not contain all information available regarding this patient. 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 Gender Identity Not on file Sexual Orientation Not on file Last Filed Vital Signs Vital Sign Reading Time Taken Comments Blood Pressure 130/70 05/06/2014 11:40 AM CDT Pulse 74 05/06/2014 11:40 AM CDT Temperature 36.6 C (97.9 F) 05/06/2014 11:40 AM CDT Respiratory Rate 18 04/23/2014 1:00 PM CDT Oxygen Saturation 98% 04/23/2014 1:00 PM CDT Inhaled Oxygen Concentration - - Weight 111.6 kg (246 lb) 05/06/2014 11:40 AM CDT Height 180.3 cm (5' 11) 05/06/2014 10:57 AM CDT Body Mass Index 34.31 05/06/2014 10:57 AM CDT Plan of Treatment Health Maintenance Due Date Last Done Comments HEPATITIS C SCREENING 05/04/1968 DTAP/TDAP/TD VACCINES (1 - Tdap) 1967 PNEUMOCOCCAL VACCINE 50+ (1 of 1 - PCV) 1998 ZOSTER VACCINE (1 of 2) 1998 Respiratory Syncytial Virus (RSV) Vaccine Pt: or over 60 yrs (1 - 1-dose 75+ series) 2023 DEPRESSION SCREENING 09/23/2024 COVID-19 VACCINE (1 - 2023-2 5 season) 2025 INFLUENZA VACCINE (#1) 2025 HEPATITIS B VACCINE Aged Out No longe r eligible based on patient's age to complete this topic HIB VACCINE Aged Out No longer eligi ble based on patient's age to complete this topic HPV VACCINE Aged Out No longer eligi ble based on patient's age to complete this topic MENINGOCOCCAL (Group B) VACC INE SHARED DECISION-MAKING Aged Out No longer eligibl e based on patient's age to complete this topic MENINGOCOCCAL GROUPS A/C/Y/W VACCINE Aged Out No longer eligible b ased on patient's age to complete this topic Care Teams Chemical Inspector Relationship Specialty Start Date End Date Sai Davila MD [address] [phone] PCP - General 05/06/14
--- OUTSIDE RECORDS SUMMARY | 2025-07-19 18:40 | XMS_ITS | Patient Health Record ---
Author Organization [facility] Address [address] [place], [place] [id number] Care Team Providers Care Curator Of Collections Name Role Phone LORRIE RIBEIRO Unavailable [phone] Sin Bradley Unavailable Unavailable Reason For Referral No Information Social History Social History Additional Details Category Social Info Options Details Migrated Social History Migrated Social History History of tobacco use : , Smoking Status : Former smoker Plan Of Treatment No Information Insurance Providers Payer Name Payer Address Payer Phone Subscriber Number Group Number Insured Name Patient Relationship to Insured Coverage Start Date Coverage End Date Medicare Part B [facility] [address] [place] [phone] [id number] GRACIA WALL Self - patient is the insured [place] [employer] [place] [address] [place] [address] [id number] GRACIA WALL Self - patient is the insured
--- NOTE | 2025-07-19 18:49 | ECG_ITS ---
Test Date: 2025-07-19 18:54:30 Measurements Intervals [place]oster Rate: 60 P: 14 SD: 200 QRS: 36 QRSD: 92 T: 20 QT: 412 QTc: 414 Interpretive Statements SINUS RHYTHM WITH OCCASIONAL SUPRAVENTRICULAR PREMATURE COMPLEXES MINIMAL Q WAVES- INFERIOR LEADS BASELINE ARTIFACT- I, II, III, AVR, AVL, AVF, V1 BORDERLINE ECG No previous ECG available for comparison Electronically Signed On 07-19-2025 19:56:55 CDT by Aramis Anne D.O.
--- NOTE | 2025-07-19 19:03 | PC.NURSE ---
Handoff report given to JONN Matthews
--- NOTE | 2025-07-19 19:05 | PC.NURSE ---
Pt report received from JONN Mendez. pt resting on stretcher in ED 2 awaiting results of imaging and blood work. Call light within reach.
[2025-07-19 19:12] LABS: Hematocrit 43.4 % (37.0-46.0); Hemoglobin 14.3 g/dL (12.4-15.3); Immature Granulocyte Percent A 0.5 % (0.0-0.0); Lymphocytes Absolute Auto 2.73 K/mm3 (1.10-4.50); Mean Corpuscular HGB Conc 32.9 g/dL (32-36); Mean Corpuscular Hemoglobin 28.8 pg (27.0-31.0); Mean Corpuscular Volume 87.3 fL (78.0-102.0); Nucleated Red Blood Cells Absolute Auto 0.00 K/mm3 (0.00-0.00); Nucleated Red Blood Cells Perc 0.0 % (0-0.0); Platelet Count Result 163 K/mm3 (150-420); Red Blood Count 4.97 M/mm3 (4.70-6.10); White Blood Count 7.9 K/mm3 (4.8-10.8)
[2025-07-19 19:23] LABS: Alanine Aminotransferase 15 U/L (6-50); Albumin Level 4.2 g/dL (3.5-5.1); Alkaline Phosphatase 84 U/L (38-126); Anion Gap 7 mmol/L (4-12); Aspartate Amino Transferase 19 U/L (17-59); Bilirubin,Total 0.5 mg/dL (0.2-1.3); Blood Urea Nitrogen 15 mg/dL (9-20); Calcium 9.1 mg/dL (8.4-10.2); Carbon Dioxide 30 mmol/L (22-30); Chloride 104 mmol/L (98-107); Estimated CRCL calculation 63 ml/min; Estimated Glomerular Filt Rate > 60; Glucose 101 mg/dL (65-110); Osmolality Calculated 292 mOsm/kg (285-295); Potassium 4.4 mmol/L (3.4-5.0); Sodium 141 mmol/L (137-145); Total Protein 7.6 g/dL (6.3-8.2)
[2025-07-19 19:35] LABS: Troponin I < 0.012 ng/mL (0.000-0.034)
--- NOTE | 2025-07-19 20:01 | PC.NURSE ---
update provided, VSS. patient awaiting ERP presentation of results. plan for DC.
--- NOTE | 2025-07-19 20:04 | PC.NURSE ---
pt ambulatory to bathroom without difficulty, awake and alert.
== END 2025-07-19 20:17 | disposition home or self-care (01) ==
PROVIDERS: Emergency Provider Emergency Medicine; PCP Internal Medicine
DX: J01.90 Acute sinusitis, unspecified (principal); T36.0X5A Adverse effect of penicillins, initial encounter; E78.5 Hyperlipidemia, unspecified; E03.9 Hypothyroidism, unspecified; Z87.891 Personal history of nicotine dependence
CPT/HCPCS: 36415; 80053; 84484; 85025; 93005; 99284

== ENCOUNTER 2025-08-26 09:27 | Outpatient (CLI) | payer MEDICARE, SELFPAY ==
--- OUTSIDE RECORDS SUMMARY | 2025-08-26 10:12 | XMS_ITS | Clinical Summary ---
Author Organization [facility] Address [facility] [place] [address] Care Team Providers Care Emergency Room Orderly Name Role Phone Sai Davila MD Primary Care Provider [phone] Allergies No known active allergies Medications nitrofurantoin, [...] to complete this topic Insurance MEDICARE [facility] Care Teams Emergency Room Orderly Relationship Specialty Start Date End Date Sai Davila MD PCP - General INTERNAL MEDICINE 04/15/20
--- OUTSIDE RECORDS SUMMARY | 2025-08-26 10:12 | XMS_ITS | Clinical Summary ---
Author Organization [facility] Address [address] [place] [address] Care Team Providers Care Irrigationist Designer Name Role Phone Sai Davila MD Primary Care Provider [phone] Allergies No known active allergies Medications levothyroxine (SYNTHROID, LEVOTHROID) 150 mcg tabletIndication s:hypothyroidism Take 1 tablet (150 mcg total) by mouth assistant paralegal before breakfast 8 Active simvastatin (ZOCOR) 40 mg tabletIndication s:hyperlipidemia Take 1 tablet (40 mg total) by mouth assistant paralegal before breakfast 8 Active vit A/vit C/vit E/zinc/copper (ICAPS AREDS ORAL)Indications :supplement Take 1 capsule by mouth assistant paralegal before breakfast Active tadalafiL (CIALIS) 5 mg [...] scheduled. Assessment & Plan (11/13/2022 11:09 PM PRODUCTION SAMPLER): Risks, benefits and alternatives were discussed. Risks [...] 11/13/2022 Assessment & Plan (09/22/2023 12:30 AM PRODUCTION SAMPLER): No evidence of epiphora on examination today [...] persist. Assessment & Plan (07/28/2023 6:54 AM PRODUCTION SAMPLER): We have discussed treatment options including trial of topical treatment, surgical intervention, and observation. We have elected to trial a course of prednisolone 1% BID and Flonase daily. Follow-up in 1 month for repeat evaluation if not improved. Painful orthopaedic hardware 08/19/2018 Overview (08/19/2018): Added automatically from request for surgery [id number] Surgical History Surgery Date Site/Laterality Comments CHOLECYSTECTOMY [...] on file Legal Sex Male 11:33 PM PRODUCTION SAMPLER Gender Identity Not on file Sexual Orientation [...] 108.9 kg (240 lb) 11/28/2022 4:55 PM PRODUCTION SAMPLER Height 180.3 cm (5' 11) 11/28/2022 4:55 PM PRODUCTION SAMPLER Body Mass Index 33.47 11/28/2022 4:55 PM PRODUCTION SAMPLER Plan of Treatment Health Maintenance Due Date Last Done Comments Depression Screening 1948 Fall Risk Assessment 1950 Hepatitis C Screening 1950 DTaP/Tdap/Td Vaccine (1 - Tdap) 1959 Hepatitis B Screening 1966 Zoster Vaccine (1 of 2) 1998 Well Visit 65+ 2013 Covid-19 Vaccine (4 2024-2 6 season) 2025 08/30/2021, 12/23/2020, 11/25/2020 Influenza Vaccine (#1) 2025 2, 07/12/2021, 06/17/2020, Additional history exists Abdominal Aortic Aneurysm (A AA) Screen Completed 04/20/2014 Pneumococcal vaccine 65+ Completed 10/07/2018, 09/23 Medical Devices Explanted Type Area Rat Trapper Device Identifier Shelf Expiration Date Model / Serial / Lot Screw Explanted:Qty : 2 on 08/26/2018 at [facility] Advanced [facility] Left: [employer] Insurance MEDICARE [facility] Address: [id number] [place] [address] [facility] INSURANCE MEDICARE AET SENIOR SUPPLEMENT MEDICARE AET SENIOR SUPPLEMENT [id number] INSURANCE Care Teams Irrigationist Designer Relationship Specialty Start Date End Date Sai Davila MD PCP - General 10/18/17
--- OUTSIDE RECORDS SUMMARY | 2025-08-26 10:12 | XMS_ITS | Clinical Summary ---
Author Organization [facility] Address [address] [place] [address] Care Team Providers Care Assembling Inspector Name Role Phone Sai Davila MD Primary Care Provider Source Comments [facility],non-owned Affiliates and Associated Physician Practices is amultiple site organization consisting of ambulatory clinics and hospital sitesin [place], [place], [place] and [place]. This disclosure is being madepursuant to the Care Everywhere program and may not contain all information available regarding this patient. 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
== END 2025-08-26 09:28 | disposition home or self-care (01) ==
LOC: ANHAUDIO 09:28
PROVIDERS: PCP Family Medicine; Visit Provider Otolaryngology
DX: H65.22 Chronic serous otitis media, left ear (principal); H90.3 Sensorineural hearing loss, bilateral
CPT/HCPCS: 92557; 92567